=== PATIENT | female | born 1940 ===

== ENCOUNTER 2018-12-12 11:19 | Inpatient (IN) | payer MEDICARE, MEDICAID ==
[2018-12-12 11:19] VITALS: BMI 22.8
[2018-12-12] MEDS ORDERED: Piperacillin/Tazobact 3.375 gm 100 ML IVPB STA (11:41)
--- NOTE | 2018-12-12 11:45 | C.PDOC ---
History Of Present Illness 78 y/o male with a PMHx of HTN, DM, and heart surgery, comes in for evaluation of right 3rd toe swelling and redness. Patient was seen by Dr. Bay and sent to the ED to rule out osteo. Otherwise patient denies any numbness, tingling, fevers, or chills. Time Seen by Provider: 12/12/18 11:33 Chief Complaint (Nursing): Lower Extremity Problem/Injury History Per: Patient History/Exam Limitations: no limitations Onset/Duration Of Symptoms: Days Current Symptoms Are (Timing): Still Present Past Medical History Reviewed: Historical Data, Nursing Documentation, Vital Signs Vital Signs: Last Vital Signs Temp 98 F 12/12/18 11:23 Pulse 101 H 12/12/18 11:23 Resp 18 12/12/18 11:23 BP 120/71 12/12/18 11:23 Pulse Ox 100 12/12/18 11:23 - Medical History PMH: Diabetes, Gastritis, HTN, Hypothyroidism Denies: Chronic Kidney Disease Surgical History: Coronary Stent - [facility] Procedures FLUOROSCOPY OF LEFT HEART USING LOW OSMOLAR CONTRAST (02/06/16) FLUOROSCOPY OF MULT COR ART USING L OSM CONTRAST (02/06/16) MEASURE OF CARDIAC SAMPL & PRESSURE, L HEART, PERC APPROACH (02/06/16) Family History: States: Unknown Family Hx - Social History Hx Tobacco Use: No Hx Alcohol Use: No Hx Substance Use: No - Immunization History Hx Tetanus Toxoid Vaccination: No Hx Influenza Vaccination: Yes Hx Pneumococcal Vaccination: No Review Of Systems Except As Marked, All Systems Reviewed And Found Negative. Constitutional: Negative for: Fever, Chills Musculoskeletal: Positive for: Foot Pain (Right 3rd toe pain and redness) Neurological: Negative for: Weakness, Numbness Physical Exam - Physical Exam Appears: Non-toxic, No Acute Distress Skin: Warm, Dry Head: Atraumatic, Normacephalic Eye(s): bilateral: Normal Inspection, PERRL, EOMI Oral Mucosa: Moist Neck: Normal ROM Chest: Symmetrical Cardiovascular: Rhythm Regular, No Murmur Respiratory: Normal Breath Sounds, No Accessory Muscle Use Gastrointestinal/Abdominal: Soft, No Tenderness, No Distention Extremity: Tenderness (to right 3rd digit), Capillary Refill (< 2 sec), Swelling (and erythema to the 3rd digit, right foot) Pulses: Left Dorsalis Pedis: Normal, Right Dorsalis Pedis: Normal Neurological/Psych: Oriented x3, Normal Motor, Normal Sensation ED Course And Treatment - Laboratory Results Result Diagrams: 12/12/18 12:01 12/12/18 12:01 O2 Sat by Pulse Oximetry: 100 (RA) Pulse Ox Interpretation: Normal Medical Decision Making Medical Decision Making: Impression: Right 3rd digit swelling and erythema, cellulitis vs abscess vs osteo Initial Plan: --CMP, CBC, coags, ESR --Blood culture --Right foot x-ray --Patient started on IV vanco and zosyn 11:45 Paged podiatry for consult. 11:47 Case discussed with PMD Dr. Samuel Marvin, notified that patient is here. accpets case. see by podiatry. Disposition - Disposition Disposition: HOSPITALIZED Disposition Time: 15:00 Condition: GOOD - Clinical Impression Clinical Impression: Cellulitis - Scribe Statement The provider has reviewed the documentation as recorded by the Maryjo Dawkins Provider Attestation: All medical record entries made by the Michelleibjewels were at my direction and personally dictated by me. I have reviewed the chart and agree that the record accurately reflects my personal performance of the history, physical exam, medical decision making, and the department course for this patient. I have also personally directed, reviewed, and agree with the discharge instructions and disposition. Decision To Admit - Pt Status Changed To: Hospital Disposition Of: Inpatient - Admit Certification Admit to Inpatient:: After my assessment, the patient will require hospitalization for at least two midnights. This is because of the severity of symptoms shown, intensity of services needed, and/or the medical risk in this patient being treated as an outpatient. - InPatient: Physician Admission Certification: I certify that this patient requires 2 or more midnights of care for the following reason:: ro osteo - . Bed Request Type: Regular Admitting Physician: Felicia Marvin Patient Diagnosis: Cellulitis
[2018-12-12 12:10] LABS: BASO % 0.3 % (0.0-2.0); EOS # 0.1 K/uL (0.0-0.7); EOS % 0.8 % (0.0-4.0); HEMOGLOBIN 9.5 g/dL (11.0-16.0); LYMPH # 1.9 K/uL (1.0-4.3); MEAN CORPUSCULAR HEMOGLOBIN 25.9 pg (27.0-31.0); MEAN CORPUSCULAR HGB CONC 32.3 g/dL (33.0-37.0); MONO # 0.5 K/uL (0.0-0.8); MONO % 5.6 % (0.0-10.0); NEUT % 73.3 % (50.0-75.0); RBC 3.66 Mil/uL (3.80-5.20); RED CELL DISTRIBUTION WIDTH 16.2 % (11.5-14.5); WHITE BLOOD COUNT 9.5 K/uL (4.8-10.8)
[2018-12-12 12:11] LABS: MEAN CELL VOLUME 80.3 fL (81.0-99.0)
--- NOTE | 2018-12-12 12:11 | CP.PCM.CON ---
History of Present Illness - History of Present Illness History of Present Illness: Podiatry Consult Note - Dr. Fady Bay 78 y/o female with PMHx of DM, HTN and history of cardiac bypass x 3 seen in emergency room for right foot abscess of 3rd digit. Patient was seen in the office earlier today by Dr. Bay, who sent her to the [facility] [place] ER for further workup of right foot cellulitis with 3rd toe fluctuance. Patient says her toe has been like this a few days since she went to an adult care clinic and they shaved down her toe callus. Admits to pain in the right 3rd toe. Denies tingling, numbness or burning. Denies F/C/N/V/CP/SOB PSHx: cardiac bypass All: NKDA SocHx: denies EtOH, cigarette or drug use Review of Systems - Review of Systems All systems: reviewed and no additional remarkable complaints except (per HPI) Past Patient History - Past Medical History & Family History Past Medical History?: Yes - Past Social History Smoking Status: Never Smoked - CARDIAC Hx Hypertension: Yes - PULMONARY Hx Respiratory Disorders: No - NEUROLOGICAL Hx Neurological Disorder: No - HEENT Hx HEENT Problems: Yes Hx Cataracts: Yes - RENAL Hx Chronic Kidney Disease: No - ENDOCRINE/METABOLIC Hx Hypothyroidism: Yes - HEMATOLOGICAL/ONCOLOGICAL Hx Blood Disorders: No - INTEGUMENTARY Hx Dermatological Problems: No - MUSCULOSKELETAL/RHEUMATOLOGICAL Hx Musculoskeletal Disorders: No - GASTROINTESTINAL Hx Gastritis: Yes - GENITOURINARY/GYNECOLOGICAL Hx Genitourinary Disorders: No - PSYCHIATRIC Hx Substance Use: No - SURGICAL HISTORY Hx Coronary Stent: Yes - ANESTHESIA Hx Anesthesia: Yes Hx Anesthesia Reactions: No Hx Malignant Hyperthermia: No Meds Allergies/Adverse Reactions: Allergies Allergy/AdvReac Type Severity Reaction Status Date / Time No Known Allergies Allergy Verified 12/12/18 11:27 - Medications Medications: Current Medications Vancomycin HCl 1 gm/ Sodium (Chloride) 250 mls @ 166.7 mls/hr IVPB STAT STA; Protocol Stop: 12/12/18 13:10 Physical Exam - Constitutional Appears: Well, Non-toxic, No Acute Distress - Extremities Exam Additional comments: Lower extremity focused exam: Vasc: DP/PT pulses palpable 2/4 B/L. Temperature gradient warm to warm on right foot, warm to cool on LLE. CFT < 3 sec to all digits with exception of right 3rd toe (unable to assess secondary to cellulitis and edema). Pedal edema noted to dorsum of right foot and entirety of 3rd toe Derm: Cellulitis noted to dorsum of right foot and entirety of 3rd toe. Hyperkeratotic tissue noted to distal tip of 3rd toe. Fluctuance noted to entirety of 3rd digit distal to MPJ. Post bedside incision and drainage, underlying ulceration present approx 0.5cm x 0.5cm x 0.2cm with fibrotic wound base. 10-12cc of purulent drainage expressed from toe s/p incision and drainage. Heather wound exhibits mild erythema. Minimal malodor noted Neuro: protective and gross sensation intact Ortho: mild-moderate tenderness with pressure applied to 3rd digit. Decreased tenderness noted s/p incision and drainage of right 3rd toe. Hammertoe contracture is noted to right 3rd digit resulting in plantarflexed PIPJ - Neurological Exam Neurological exam: Alert, Oriented x3 - Psychiatric Exam Psychiatric exam: Normal Affect, Normal Mood Results - Vital Signs Recent Vital Signs: Last Vital Signs Temp 98 F 12/12/18 11:23 Pulse 101 H 12/12/18 11:23 Resp 18 12/12/18 11:23 BP 120/71 12/12/18 11:23 Pulse Ox 100 12/12/18 11:48 - Labs Result Diagrams: 12/12/18 12:01 12/12/18 12:01 Assessment & Plan - Assessment and Plan (Free Text) Assessment: 78 y/o diabetic female with right foot 3rd digit abscess likely secondary to DM and pressure Plan Pt seen and evaluated in ED with Dr. Bay present X-rays ordered of R foot reviewed- no distinct acute osseous erosive changes noted to right 3rd toe; await final read Incision and drainage performed to right foot 3rd toe with sterile 15 blade 10-12 cc of purulent drainage expressed at bedside Wound culture taken of purulent drainage, await results Saline wet to dry dressing applied to R foot; Dakins solution ordered for dressing changes Recommend hospital admission for IV abx and medical management ID consult placed for Dr. Joiner - recommendations appreciated Will continue to follow patient while in house
[2018-12-12 12:18] LABS: INR 1.1; PROTHROMBIN TIME 11.5 SECONDS (9.7-12.2)
[2018-12-12] MEDS ORDERED: Vancomycin 1 GM 1 GM/250 ML BAG IVPB ONE (12:20)
[2018-12-12] MEDS ORDERED: Piperacillin/Tazobact 3.375 gm 100 ML IVPB ONE (12:20)
[2018-12-12 12:29] LABS: ALB/GLOB RATIO 1.2 (1.0-2.1); ALBUMIN 4.3 g/dL (3.5-5.0); ALT/SGPT 12 U/L (9-52); AST/SGOT 15 U/L (14-36); BLOOD UREA NITROGEN 15 mg/dL (7-17); GFR NON-AFRICAN AMERICAN 54
--- NOTE | 2018-12-12 14:56 | RAD ---
Date of service: 12/12/2018 PROCEDURE: Right Foot Radiographs. HISTORY: swelling COMPARISON: None. FINDINGS: BONES: Distal 3rd digit is difficult to evaluate due to contracted nature. JOINTS: Normal. SOFT TISSUES: Extensive distal 3rd digit swelling OTHER FINDINGS: None. IMPRESSION: Limited evaluation of the distal 3rd digit due to contracted nature. Extensive distal 3rd digit soft tissue swelling.
[2018-12-12] MEDS: Levothyroxine 50 MCG TAB PO SCH (14:58)
[2018-12-12] MEDS: Multivitamin With Minerals Tab PO SCH (14:59)
[2018-12-12] MEDS ORDERED: Glucagon Recombinant 1 mg Inj IM PRN (16:38)
[2018-12-12] MEDS ORDERED: Dextrose 50% SYRINGE Inj (50 ml) IV PRN (16:38)
[2018-12-12] MEDS: (Novolin R) Insulin Human Regular 100 units/ml vial SC SCH ×2 (17:24→21:05)
--- NOTE | 2018-12-12 21:32 | HP ---
HISTORY OF PRESENT ILLNESS: This is a 78-year-old [place] female who was sent to the emergency room. The patient was having right middle toe swelling and redness. The patient complained of throbbing inside. The patient was seen in Dr. Fady Bay's office and decided to admit. The patient complained of low-grade fever. No history of chest pain. REVIEW OF SYSTEMS: CARDIOVASCULAR SYSTEM: Negative for chest pain. RESPIRATORY SYSTEM: Negative for shortness of breath. GASTROINTESTINAL SYSTEM: Negative for nausea, vomiting, or abdominal pain. CENTRAL NERVOUS SYSTEM: No focal neurological complaints offered. Right foot third toe is swollen, tender, and possible with abscess. The patient also has cellulitis up to the ankle. PAST HISTORY: History of diabetes, gastritis, hypertension, hypothyroidism, coronary artery disease. PAST SURGICAL HISTORY: Bypass surgery in the past. ALLERGIES: NO KNOWN ALLERGY. FAMILY HISTORY: No known inherited disease. SOCIAL HISTORY: Nonsmoker, nonalcoholic, no IVDA. MEDICATIONS: The patient's medications were reviewed by me on admission. PHYSICAL EXAMINATION: GENERAL: The patient is alert, oriented, comfortable.. VITAL SIGNS: Temperature 98, pulse 101, respirations 18, blood pressure 120/71 mmHg, pulse ox is 100% on room air. HEENT: Normal. NECK: JVP flat. Carotid, no bruits. LUNGS: No rales. No wheezing. HEART: S1 and S2 are normal. No gallop. No murmur. ABDOMEN: Soft, nontender. No organomegaly. CENTRAL NERVOUS SYSTEM: No focal neurological deficits. Right foot has third toe swollen, tender with abscess and redness. Also cellulitis noted up to the ankle. Tenderness present. Redness present. Warmth present. LABORATORY DATA: On admission, white cell count is normal. IMPRESSION: Right foot cellulitis with right third toe abscess. Rule out osteomyelitis. Coronary artery disease, status post bypass surgery, diabetes, and hypertension. PLAN: The patient will be admitted to the floor. We will get podiatry consult and also infectious disease consult. Continue all the medications. Other workup as needed. Felicia Marvin MD
[2018-12-13] MEDS: Levothyroxine 50 MCG TAB PO SCH (05:40)
[2018-12-13] MEDS: (Novolin R) Insulin Human Regular 100 units/ml vial SC SCH ×4 (08:37→22:08)
[2018-12-13] MEDS: Multivitamin With Minerals Tab PO SCH (10:39)
[2018-12-13] MEDS: Dakin's Topical 0.5%-Full Strength (480 ml) TOP SCH (10:42)
--- NOTE | 2018-12-13 12:12 | CP.PCM.PN ---
Subjective - Date & Time of Evaluation Date of Evaluation: 12/13/18 Time of Evaluation: 12:12 - Subjective Subjective: Podiatry Progress Note - Dr. Bay 78 y/o female seen at bedside this afternoon with Dr. Bay regarding right 3rd toe abscess. Patient says pain has gone down significantly to right foot 3rd toe. Says she has been walking with physical therapy but only putting weight on the heel because it hurts if the toe hits the ground or there is pressure on it. Denies any new pedal complaints. Denies F/C/N/V/CP/SOB Objective - Vital Signs/Intake and Output Vital Signs (last 24 hours): Temp Pulse Resp BP Pulse Ox 98.2 F 88 20 118/74 98 12/13/18 07:37 12/13/18 07:37 12/13/18 07:37 12/13/18 10:40 12/13/18 07:37 Intake and Output: 12/13/18 12/13/18 06:59 18:59 Intake Total 360 Balance 360 - Medications Medications: Current Medications Dextrose (Dextrose 50% Inj) 0 ml IV STAT PRN; Protocol PRN Reason: Hypoglycemia Protocol Dextrose (Glutose 15) 0 gm PO ONCE PRN; Protocol PRN Reason: Hypoglycemia Protocol Enalapril Maleate (Vasotec) 2.5 mg PO DAILY [facility] Last Admin: 12/13/18 10:40 Dose: 2.5 mg Fenofibrate (Tricor) 48 mg PO HS [facility] Last Admin: 12/12/18 21:40 Dose: 48 mg Gabapentin (Neurontin) 300 mg PO TID [facility] Last Admin: 12/13/18 10:39 Dose: 300 mg Glimepiride (Amaryl) 2 mg PO ACB [facility] Last Admin: 12/13/18 08:37 Dose: 2 mg Glucagon (Glucagen Diagnostic Kit) 0 mg IM STAT PRN; Protocol PRN Reason: Hypoglycemia Protocol Heparin Sodium (Porcine) (Heparin) 5,000 units SC Q12 [facility] Last Admin: 12/13/18 10:39 Dose: 5,000 units Dextrose (Dextrose 5% In Water 1000 Ml) 1,000 mls @ 0 mls/hr IV .Q0M PRN; Protocol PRN Reason: Hypoglycemia Protocol Insulin Human Regular (Novolin R) 0 unit SC ACHS [facility]; Protocol Last Admin: 01/23/19 08:37 Dose: 3 units Levothyroxine Sodium (Synthroid) 50 mcg PO DAILY@0630 [facility] Last Admin: 12/13/18 05:40 Dose: 50 mcg Metformin HCl (Glucophage) 1,000 mg PO BIDCC [facility] Last Admin: 12/13/18 08:37 Dose: 1,000 mg Multivitamins/Minerals (Therapeutic-M Tab) 1 tab PO DAILY [facility] Last Admin: 12/13/18 10:39 Dose: 1 tab Pioglitazone HCl (Actos) 15 mg PO DAILY [facility] Last Admin: 12/13/18 10:39 Dose: 15 mg Sitagliptin Phosphate (Januvia) 100 mg PO DAILY [facility] Last Admin: 12/13/18 10:39 Dose: 100 mg Sodium Hypochlorite (Dakins Solution 0.5%) 0 ml TOP DAILY [facility] Last Admin: 12/13/18 10:42 Dose: Not Given - Labs Labs: 12/12/18 12:01 12/12/18 12:01 PT 11.5 SECONDS (9.7-12.2) 12/12/18 12:01 INR 1.1 12/12/18 12:01 APTT 30 SECONDS (21-34) 12/12/18 12:01 - Constitutional Appears: Well, Non-toxic, No Acute Distress - Extremities Exam Additional comments: Lower extremity focused exam: Vasc: DP/PT pulses palpable 2/4 B/L. Temperature gradient warm to warm on right foot, warm to cool on LLE. CFT < 3 sec to all digits with exception of right 3rd toe (unable to assess secondary to bogginess and edema). Pedal edema noted to dorsum of right foot and entirety of 3rd toe, less since admission Derm: Mild cellulitis noted to dorsum of right foot and entirety of 3rd toe, significantly decreased since hospital admission. Minimal hyperkeratotic tissue noted to distal tip of 3rd toe. Mild fluctuance and bogginess noted to entirety of 3rd digit distal to MPJ, significantly less since admission. Heather wound exhibits mild erythema. Additional 2-3cc of purulent drainage expressed with pressure. Neuro: protective and gross sensation intact Ortho: mild tenderness with pressure applied to 3rd digit. Decreased tenderness noted s/p incision and drainage yesterday of right 3rd toe. Hammertoe cont racture is noted to right 3rd digit resulting in plantarflexed PIPJ - Neurological Exam Neurological Exam: Alert, Awake, Oriented x3 - Psychiatric Exam Psychiatric exam: Normal Affect, Normal Mood Assessment and Plan - Assessment and Plan (Free Text) Assessment: 78 y/o diabetic female with right foot 3rd digit abscess likely secondary to DM and pressure Plan Pt seen and evaluated in ED with Dr. Bay present X-rays ordered of R foot reviewed- no distinct acute osseous erosive changes noted to right 3rd toe; await final read Wound culture prelim shows gram pos cocci, await final results RLE MRI taken today reveals cortical destruction and erosion at distal phalanx of 3rd digit, suggestive of acute osteomyelitis Dakins and DSD applied to right foot ID on board Dr. Joiner - recommendations appreciated Will continue to follow patient while in house
--- NOTE | 2018-12-13 12:41 | CP.PCM.PN ---
Subjective - Date & Time of Evaluation Date of Evaluation: 12/13/18 Time of Evaluation: 12:38 - Subjective Subjective: rt foot inf present. afebrile. wound c/s gm pos cocci. vs stable. Objective - Vital Signs/Intake and Output Vital Signs (last 24 hours): Temp Pulse Resp BP Pulse Ox 98.2 F 88 20 118/74 98 12/13/18 07:37 12/13/18 07:37 12/13/18 07:37 12/13/18 10:40 12/13/18 07:37 Intake and Output: 12/13/18 12/13/18 06:59 18:59 Intake Total 360 Balance 360 - Medications Medications: Current Medications Dextrose (Dextrose 50% Inj) 0 ml IV STAT PRN; Protocol PRN Reason: Hypoglycemia Protocol Dextrose (Glutose 15) 0 gm PO ONCE PRN; Protocol PRN Reason: Hypoglycemia Protocol Enalapril Maleate (Vasotec) 2.5 mg PO DAILY [facility] Last Admin: 12/13/18 10:40 Dose: 2.5 mg Fenofibrate (Tricor) 48 mg PO HS [facility] Last Admin: 12/12/18 21:40 Dose: 48 mg Gabapentin (Neurontin) 300 mg PO TID [facility] Last Admin: 12/13/18 10:39 Dose: 300 mg Glimepiride (Amaryl) 2 mg PO ACB [facility] Last Admin: 12/13/18 08:37 Dose: 2 mg Glucagon (Glucagen Diagnostic Kit) 0 mg IM STAT PRN; Protocol PRN Reason: Hypoglycemia Protocol Heparin Sodium (Porcine) (Heparin) 5,000 units SC Q12 [facility] Last Admin: 12/13/18 10:39 Dose: 5,000 units Dextrose (Dextrose 5% In Water 1000 Ml) 1,000 mls @ 0 mls/hr IV .Q0M PRN; Protocol PRN Reason: Hypoglycemia Protocol Insulin Human Regular (Novolin R) 0 unit SC ACHS [facility]; Protocol Last Admin: 12/13/18 08:37 Dose: 3 units Levothyroxine Sodium (Synthroid) 50 mcg PO DAILY@0630 [facility] Last Admin: 12/13/18 05:40 Dose: 50 mcg Metformin HCl (Glucophage) 1,000 mg PO BIDCC [facility] Last Admin: 12/13/18 08:37 Dose: 1,000 mg Multivitamins/Minerals (Therapeutic-M Tab) 1 tab PO DAILY [facility] Last Admin: 12/13/18 10:39 Dose: 1 tab Pioglitazone HCl (Actos) 15 mg PO DAILY [facility] Last Admin: 12/13/18 10:39 Dose: 15 mg Sitagliptin Phosphate (Januvia) 100 mg PO DAILY [facility] Last Admin: 12/13/18 10:39 Dose: 100 mg Sodium Hypochlorite (Dakins Solution 0.5%) 0 ml TOP DAILY [facility] Last Admin: 12/13/18 10:42 Dose: Not Given - Labs Labs: 12/12/18 12:01 12/12/18 12:01 PT 11.5 SECONDS (9.7-12.2) 12/12/18 12:01 INR 1.1 12/12/18 12:01 APTT 30 SECONDS (21-34) 12/12/18 12:01 - Constitutional Appears: No Acute Distress - Eye Exam Eye Exam: Normal appearance, PERRL - ENT Exam ENT Exam: Normal Exam - Respiratory Exam Respiratory Exam: Clear to Ausculation Bilateral, NORMAL BREATHING PATTERN - Cardiovascular Exam Cardiovascular Exam: REGULAR RHYTHM, +S1, +S2 - GI/Abdominal Exam GI & Abdominal Exam: Soft, Normal Bowel Sounds - Extremities Exam Extremities Exam: Full ROM, Normal Capillary Refill, Normal Inspection. absent: Joint Swelling, Pedal Edema - Back Exam Back Exam: NORMAL INSPECTION - Neurological Exam Neurological Exam: Alert, Awake, CN II-XII Intact, Normal Gait, Oriented x3 - Psychiatric Exam Psychiatric exam: Normal Affect, Normal Mood Assessment and Plan - Assessment and Plan (Free Text) Assessment: wound inf rt foot. cad. Plan: as per podietry and id.
[2018-12-13] MEDS: Piperacill/Tazo 3.375gm in Dex 3.375 GM/50 ML BAG IVPB SCH ×2 (14:44→22:07)
--- NOTE | 2018-12-13 18:14 | CP.PCM.CON ---
History of Present Illness - History of Present Illness History of Present Illness: 78 y/o female with PMHx of DM, HTN and history of cardiac bypass x 3 Admitted for right foot cellulitis with 3rd toe fluctuance. Patient says her toe has been like this a few days since she went to an adult care clinic and they shaved down her toe callus. Plain X ray neg MRI pending PSHx: cardiac bypass All: NKDA SocHx: denies EtOH, cigarette or drug use Review of Systems - Review of Systems All systems: reviewed and no additional remarkable complaints except - Constitutional Constitutional: As Per HPI. absent: Chills, Fever - EENT Eyes: absent: As Per HPI, Blind Spots, Blurred Vision, Change in Vision, Decreased Night Vision, Diplopia, Discharge, Dry Eye, Exophthalmos, Floaters, Irritation, Itchy Eyes, Loss of Peripheral Vision, Pain, Photophobia, Requires Corrective Lenses, Sees Flashes, Spots in Vision, Tunnel Vision, Other Visual Disturbances, Loss of Vision, Other Ears: absent: As Per HPI, Decreased Hearing, Ear Discharge, Ear Pain, Tinnitus, Abnormal Hearing, Disequilibrium, Dizziness, Other Nose/Mouth/Throat: absent: As Per HPI, Epistaxis, Nasal Congestion, Nasal Discharge, Nasal Obstruction, Nasal Trauma, Nose Pain, Post Nasal Drip, Sinus Pain, Sinus Pressure, Bleeding Gums, Change in Voice, Dental Pain, Dry Mouth, Dysphagia, Halitosis, Hoarsness, Lip Swelling, Mouth Lesions, Mouth Pain, Odynophagia, Sore Throat, Throat Swelling, Tongue Swelling, Facial Pain, Neck Pain, Neck Mass, Other - Breasts Breasts: absent: As Per HPI, Change in Shape, Mass, Pain, Nipple Discharge, Nipple Inversion, Skin Changes, Swelling, Other - Cardiovascular Cardiovascular: absent: As Per HPI, Acrocyanosis, Chest Pain, Chest Pain at Rest, Chest Pain with Activity, Claudication, Diaphoresis, Dyspnea, Dyspnea on E xertion, Edema, Irregular Heart Rhythm, Pain Radiating to Arm/Neck/Jaw, Leg Edema, Leg Ulcers, Lightheadedness, Orthopnea, Palpitations, Paroxysmal Nocturnal Dyspnea, Pedal Edema, Radiating Pain, Rapid Heart Rate, Slow Heart Rate, Syncope, Other - Respiratory Respiratory: absent: As Per HPI, Cough, Dyspnea, Hemoptysis, Dyspnea on Exertion, Wheezing, Snoring, Stridor, Pain on Inspiration, Chest Congestion, Excessive Mucous Production, Change in Mucous Color, Pain with Coughing, Other - Gastrointestinal Gastrointestinal: absent: As Per HPI, Abdominal Pain, Belching, Bloating, Change in Bowel Habits, Change in Stool Character, Coffee Ground Emesis, Constipation, Cramping, Diarrhea, Dyspepsia, Dysphagia, Early Satiety, Excessive Flatus, Fecal Incontinence, Heartburn, Hematemesis, Hematochezia, Loose Stools, Melena, Nausea, Odynophagia, Temesmus, Vomiting, Other - Genitourinary Genitourinary: absent: As Per HPI, Change in Urinary Stream, Difficulty Urinating, Dysuria, Flank Pain, Hematuria, Pyuria, Nocturia, Urinary Incontinence, Urinary Frequency, Urinary Hesitance, Urinary Urgency, Voiding Freq/Small Amts, Freq UTI, Hx Renal/Bladder Calculi, Hx /Renal Surgery, Bladd er Distension, Other - Reproductive: Female Reproductive:Female: absent: As Per HPI, Amenorrhea, Amenorrhea/ Control, Currently Menstual, Cycle <21 Days, Cycle >35 Days, Cycle Variable, Menses 1-7 Days, Menses >/= 8 Days, Menses Variable, Cycle > 4 Weeks Between, No Menses for 6 Months, Heavy Menses, Light Menses, Normal Menses, Spotting Between Cycles, S/P Hysterectomy, Menopausal, Post Menopausal, Premenarche, Abnormal Vaginal Bleeding, Dysmenorrhea, Dyspareunia, Genital Lesions, Genital Pruritis, Pelvic Pain, Prolapse Symptoms, Sexual Dysfunction, Vaginal Discharge, Vaginal Dryness, Vaginal Odor, Vaginal Pruritis, Other - Menstruation Menstruation: absent: As Per HPI, Amenorrhea, Amenorrhea/ Control, Currently Menstual, Cycle <21 Days, Cycle >35 Days, Cycle Variable, Menses 1-7 Days, Menses >/= 8 Days, Menses Variable, Cycle > 4 Weeks Between, No Menses for 6 Months, Heavy Menses, Light Menses, Normal Menses, Spotting Between Cycles, S/P Hysterectomy, Menopausal, Post Menopausal, Premenarche, Abnormal Vaginal Bleeding, Dysmenorrhea, Other - Musculoskeletal Musculoskeletal: As Per HPI - Integumentary Integumentary: As Per HPI, Skin Pain, Wounds - Neurological Neurological: As Per HPI - Psychiatric Psychiatric: absent: As Per HPI, Abnormal Sleep Pattern, Anhedonia, Anxiety, Auditory Hallucinations, Behavioral Changes, Change in Appetite, Change in Libido, Confusion, Depression, Difficulty Concentrating, Hallucinations, Homicidal Ideation, Hopelessness, Irritability, Memory Loss, Mood Swings, Panic Attacks, Paranoia, Suicidal Ideation, Visual Hallucinations, Tactile Hallucinations, Other - Endocrine Endocrine: absent: As Per HPI, Change in Body Appearance, Change in Libido, Cold Intolorance, Deepening of Voice, Excessive Sweating, Fatigue, Flushing, Heat Intolorance, Increase in Ring/Shoe/Hat Size, Palpitations, Polydipsia, Polyphagia, Polyuria, Other - Hematologic/Lymphatic Hematologic: absent: As Per HPI, Easy Bleeding, Easy Bruising, Lymphadenopathy, Other Past Patient History - Past Medical History & Family History Past Medical History?: Yes - Past Social History Smoking Status: Never Smoked - CARDIAC Hx Hypertension: Yes - PULMONARY Hx Respiratory Disorders: No - NEUROLOGICAL Hx Neurological Disorder: No - HEENT Hx HEENT Problems: Yes Hx Cataracts: Yes - RENAL Hx Chronic Kidney Disease: No - ENDOCRINE/METABOLIC Hx Hypothyroidism: Yes - HEMATOLOGICAL/ONCOLOGICAL Hx Blood Disorders: No - INTEGUMENTARY Hx Dermatological Problems: No - MUSCULOSKELETAL/RHEUMATOLOGICAL Hx Musculoskeletal Disorders: No Hx Falls: No - GASTROINTESTINAL Hx Gastritis: Yes - GENITOURINARY/GYNECOLOGICAL Hx Genitourinary Disorders: No - PSYCHIATRIC Hx Substance Use: No - SURGICAL HISTORY Hx Coronary Stent: Yes - ANESTHESIA Hx Anesthesia: Yes Hx Anesthesia Reactions: No Hx Malignant Hyperthermia: No Meds Allergies/Adverse Reactions: Allergies Allergy/AdvReac Type Severity Reaction Status Date / Time No Known Allergies Allergy Verified 12/12/18 11:27 - Medications Medications: Current Medications Betamethasone/Clotrimazole (Lotrisone) 0 gm TOP BID [facility] Dextrose (Dextrose 50% Inj) 0 ml IV STAT PRN; Protocol PRN Reason: Hypoglycemia Protocol Dextrose (Glutose 15) 0 gm PO ONCE PRN; Protocol PRN Reason: Hypoglycemia Protocol Enalapril Maleate (Vasotec) 2.5 mg PO DAILY [facility] Last Admin: 12/13/18 10:40 Dose: 2.5 mg Fenofibrate (Tricor) 48 mg PO HS [facility] Last Admin: 12/12/18 21:40 Dose: 48 mg Gabapentin (Neurontin) 300 mg PO TID [facility] Last Admin: 12/13/18 14:45 Dose: 300 mg Glimepiride (Amaryl) 2 mg PO ACB [facility] Last Admin: 12/13/18 08:37 Dose: 2 mg Glucagon (Glucagen Diagnostic Kit) 0 mg IM STAT PRN; Protocol PRN Reason: Hypoglycemia Protocol Heparin Sodium (Porcine) (Heparin) 5,000 units SC Q12 [facility] Last Admin: 12/13/18 10:39 Dose: 5,000 units Dextrose (Dextrose 5% In Water 1000 Ml) 1,000 mls @ 0 mls/hr IV .Q0M PRN; Protocol PRN Reason: Hypoglycemia Protocol Piperacillin Sod/Tazobactam Sod (Zosyn 3.375 Gm Iv Premix) 3.375 gm in 50 mls @ 100 mls/hr IVPB Q8H [facility]; Protocol Last Admin: 12/13/18 14:44 Dose: 100 mls/hr Insulin Human Regular (Novolin R) 0 unit SC ACHS [facility]; Protocol Last Admin: 12/13/18 17:08 Dose: Not Given Levothyroxine Sodium (Synthroid) 50 mcg PO DAILY@0630 [facility] Last Admin: 12/13/18 05:40 Dose: 50 mcg Metformin HCl (Glucophage) 1,000 mg PO BIDCC [facility] Last Admin: 12/13/18 08:37 Dose: 1,000 mg Multivitamins/Minerals (Therapeutic-M Tab) 1 tab PO DAILY [facility] Last Admin: 12/13/18 10:39 Dose: 1 tab Pioglitazone HCl (Actos) 15 mg PO DAILY [facility] Last Admin: 12/13/18 10:39 Dose: 15 mg Sitagliptin Phosphate (Januvia) 100 mg PO DAILY [facility] Last Admin: 12/13/18 10:39 Dose: 100 mg Sodium Hypochlorite (Dakins Solution 0.5%) 0 ml TOP DAILY [facility] Last Admin: 12/13/18 10:42 Dose: Not Given Physical Exam - Constitutional Appears: Non-toxic, Chronically Ill - Head Exam Head Exam: NORMOCEPHALIC - Eye Exam Eye Exam: absent: Scleral icterus - ENT Exam ENT Exam: Mucous Membranes Dry - Neck Exam Neck exam: Negative for: Lymphadenopathy - Respiratory Exam Respiratory Exam: Decreased Breath Sounds - Cardiovascular Exam Cardiovascular Exam: REGULAR RHYTHM - GI/Abdominal Exam GI & Abdominal Exam: Diminished Bowel Sounds, Soft. absent: Tenderness - Rectal Exam Rectal Exam: Deferred - Extremities Exam Extremities exam: Positive for: pedal edema, tenderness, pedal pulses present. Negative for: calf tenderness Additional comments: Lower extremity focused exam: Vasc: DP/PT pulses palpable 2/4 B/L. Temperature gradient warm to warm on right foot, warm to cool on LLE. CFT < 3 sec to all digits with exception of right 3rd toe (unable to assess secondary to cellulitis and edema). Pedal edema noted to dorsum of right foot and entirety of 3rd toe Derm: Cellulitis noted to dorsum of right foot and entirety of 3rd toe. Hyperkeratotic tissue noted to distal tip of 3rd toe. Fluctuance noted to entirety of 3rd digit distal to MPJ. Post bedside incision and drainage, underlying ulceration present approx 0.5cm x 0.5cm x 0.2cm with fibrotic wound base. 10-12cc of purulent drainage expressed from toe s/p incision and drainage. Heather wound exhibits mild erythema. Minimal malodor noted Neuro: protective and gross sensation intact Ortho: mild-moderate tenderness with pressure applied to 3rd digit. Decreased te nderness noted s/p incision and drainage of right 3rd toe. Hammertoe contracture is noted to right 3rd digit resulting in plantarflexed PIPJ - Back Exam Back exam: absent: CVA tenderness (L), CVA tenderness (R) - Neurological Exam Neurological exam: Alert, CN II-XII Intact, Oriented x3, Reflexes Normal - Psychiatric Exam Psychiatric exam: Depressed - Skin Skin Exam: Dry Results - Vital Signs Recent Vital Signs: Last Vital Signs Temp 97.3 F L 12/13/18 16:29 Pulse 97 H 12/13/18 16:29 Resp 20 12/13/18 16:29 BP 118/76 12/13/18 16:29 Pulse Ox 100 12/13/18 16:29 - Labs Result Diagrams: 12/12/18 12:01 12/12/18 12:01 Labs: Laboratory Results - last 24 hr 12/12/18 12/13/18 12/13/18 20:57 07:14 11:22 POC Glucose (mg/dL) 212 H 247 H 188 H 12/13/18 16:13 POC Glucose (mg/dL) 97 Assessment & Plan (1) Cellulitis Status: Acute (2) Non-STEMI (non-ST elevated myocardial infarction) Status: Acute - Assessment and Plan (Free Text) Assessment: cellulitis right 3rd toe- s/p I and D by podiatry r/o OM acute hx CAD await cultures cont IV antibiotics Discussed with Dr Felicia Marvin
--- NOTE | 2018-12-13 18:32 | MRI ---
Date of service: 12/13/2018 PROCEDURE: MRI of the right foot without contrast HISTORY: r/o osteomyelitis right 3rd digit COMPARISON: Comparison is made to the previous x-ray of the right foot dated 12/12/2018 TECHNIQUE: Axial coronal and sagittal MRI images of right foot were obtained without IV contrast administration. FINDINGS: This study demonstrates cortical erosion/destruction at the distal phalanx of right 3rd digit associated with bone marrow edema and adjacent soft tissue swelling. Findings suggestive of acute osteomyelitis. No evidence of other cortical erosion or bone marrow edema. Hallux valgus deformity and degenerative changes are noted at the tarsal metatarsal and metatarsophalangeal joints. IMPRESSION: Findings suggestive of acute osteomyelitis involving the distal phalanx of the 3rd digit. Adjacent soft tissue swelling without definite evidence of drainable fluid collection. Preliminary report was submitted by [facility] Rad[facility].
[2018-12-13] MEDS: Clotrimazole/Betamethasone Cream(15 gm) TOP SCH (18:53)
[2018-12-13] MEDS: Vancomycin 1 gm/NS 200 ml 1 GM/200 ML BAG IVPB SCH (19:11)
[2018-12-13 20:46] LABS: SQUAMOUS EPITHIAL < 1 /hpf (0-5); URINE BACTERIA RARE (<OCC); URINE BILIRUBIN NEGATIVE (NEGATIVE); URINE BLOOD NEGATIVE (NEGATIVE); URINE CLARITY Clear (Clear); URINE COLOR Yellow (YELLOW); URINE GLUCOSE (UA) NORMAL (Normal); URINE LEUKOCYTE ESTERASE TRACE Leu/uL (Negative); URINE PROTEIN NEGATIVE (NEGATIVE); URINE UROBILINOGEN NORMAL mg/dL (0.2-1.0)
[2018-12-14] MEDS: Piperacill/Tazo 3.375gm in Dex 3.375 GM/50 ML BAG IVPB SCH ×3 (05:36→22:00)
[2018-12-14] MEDS: Levothyroxine 50 MCG TAB PO SCH (05:38)
[2018-12-14] MEDS: Multivitamin With Minerals Tab PO SCH (11:06)
[2018-12-14] MEDS: (Novolin R) Insulin Human Regular 100 units/ml vial SC SCH ×4 (11:10→22:01)
[2018-12-14] MEDS: Dakin's Topical 0.5%-Full Strength (480 ml) TOP SCH (11:12)
[2018-12-14] MEDS: Clotrimazole/Betamethasone Cream(15 gm) TOP SCH ×2 (11:14→18:15)
--- NOTE | 2018-12-14 12:46 | CP.PCM.PN ---
Subjective - Date & Time of Evaluation Date of Evaluation: 12/14/18 Time of Evaluation: 12:43 - Subjective Subjective: WOUND CULTURE GM NEG STAPH. MRI POSITIVE FOR OM OF TOE. DISCUSSED WITH DR. HUDSON, NEEDS AMPUTATION. WILL DISCUSS WITH PT. Objective - Vital Signs/Intake and Output Vital Signs (last 24 hours): Temp Pulse Resp BP Pulse Ox 98.0 F 82 20 117/68 98 12/14/18 07:52 12/14/18 07:52 12/14/18 07:52 12/14/18 11:06 12/14/18 07:52 Intake and Output: 12/14/18 12/14/18 06:59 18:59 Intake Total 850 Balance 850 - Medications Medications: Current Medications Betamethasone/Clotrimazole (Lotrisone) 0 gm TOP BID [facility] Last Admin: 12/14/18 11:14 Dose: 1 applic Dextrose (Dextrose 50% Inj) 0 ml IV STAT PRN; Protocol PRN Reason: Hypoglycemia Protocol Dextrose (Glutose 15) 0 gm PO ONCE PRN; Protocol PRN Reason: Hypoglycemia Protocol Enalapril Maleate (Vasotec) 2.5 mg PO DAILY [facility] Last Admin: 12/14/18 11:06 Dose: 2.5 mg Fenofibrate (Tricor) 48 mg PO HS [facility] Last Admin: 12/13/18 22:17 Dose: 48 mg Gabapentin (Neurontin) 300 mg PO TID [facility] Last Admin: 12/14/18 11:06 Dose: 300 mg Glimepiride (Amaryl) 2 mg PO ACB [facility] Last Admin: 12/14/18 08:15 Dose: 2 mg Glucagon (Glucagen Diagnostic Kit) 0 mg IM STAT PRN; Protocol PRN Reason: Hypoglycemia Protocol Heparin Sodium (Porcine) (Heparin) 5,000 units SC Q12 [facility] Last Admin: 12/14/18 11:11 Dose: Not Given Dextrose (Dextrose 5% In Water 1000 Ml) 1,000 mls @ 0 mls/hr IV .Q0M PRN; Protocol PRN Reason: Hypoglycemia Protocol Piperacillin Sod/Tazobactam Sod (Zosyn 3.375 Gm Iv Premix) 3.375 gm in 50 mls @ 100 mls/hr IVPB Q8H [facility]; Protocol Last Admin: 12/14/18 05:36 Dose: 100 mls/hr Vancomycin/Sodium Chloride (Vancomycin 1 Gm/Ns 200 Ml) 1 gm in 200 mls @ 133 mls/hr IVPB Q24H [facility]; Protocol Stop: 12/18/18 19:01 Last Admin: 12/13/18 19:11 Dose: 133 mls/hr Insulin Human Regular (Novolin R) 0 unit SC ACHS [facility]; Protocol Last Admin: 12/14/18 12:25 Dose: 3 units Levothyroxine Sodium (Synthroid) 50 mcg PO DAILY@0630 [facility] Last Admin: 12/14/18 05:38 Dose: 50 mcg Metformin HCl (Glucophage) 1,000 mg PO BIDCC [facility] Last Admin: 12/14/18 08:15 Dose: 1,000 mg Multivitamins/Minerals (Therapeutic-M Tab) 1 tab PO DAILY [facility] Last Admin: 12/14/18 11:06 Dose: 1 tab Pioglitazone HCl (Actos) 15 mg PO DAILY [facility] Last Admin: 12/14/18 11:10 Dose: 15 mg Sitagliptin Phosphate (Januvia) 100 mg PO DAILY [facility] Last Admin: 12/14/18 11:14 Dose: 100 mg Sodium Hypochlorite (Dakins Solution 0.5%) 0 ml TOP DAILY [facility] Last Admin: 12/14/18 11:12 Dose: Not Given - Labs Labs: 12/12/18 12:01 12/12/18 12:01 PT 11.5 SECONDS (9.7-12.2) 12/12/18 12:01 INR 1.1 12/12/18 12:01 APTT 30 SECONDS (21-34) 12/12/18 12:01 - Constitutional Appears: No Acute Distress, Chronically Ill - Eye Exam Eye Exam: PERRL - ENT Exam ENT Exam: Normal Exam - Respiratory Exam Respiratory Exam: Clear to Ausculation Bilateral, NORMAL BREATHING PATTERN - Cardiovascular Exam Cardiovascular Exam: REGULAR RHYTHM, +S1, +S2 - GI/Abdominal Exam GI & Abdominal Exam: Soft, Normal Bowel Sounds - Extremities Exam Additional comments: RT 3RD TOE OM. CELLULITIS. CAD. - Back Exam Back Exam: NORMAL INSPECTION - Neurological Exam Neurological Exam: Alert, Awake, CN II-XII Intact, Normal Gait, Oriented x3 - Psychiatric Exam Psychiatric exam: Normal Affect, Normal Mood Assessment and Plan - Assessment and Plan (Free Text) Assessment: OM TOE. 3RD RT. Plan: FOR AMPUTATION. IV ABTS.
--- NOTE | 2018-12-14 12:51 | CP.PCM.PN ---
Subjective - Date & Time of Evaluation Date of Evaluation: 12/14/18 Time of Evaluation: 12:51 - Subjective Subjective: PATIENT MEDICALLY CLEARED FOR SURGERY. Objective - Vital Signs/Intake and Output Vital Signs (last 24 hours): Temp Pulse Resp BP Pulse Ox 98.0 F 82 20 117/68 98 12/14/18 07:52 12/14/18 07:52 12/14/18 07:52 12/14/18 11:06 12/14/18 07:52 Intake and Output: 12/14/18 12/14/18 06:59 18:59 Intake Total 850 Balance 850 - Medications Medications: Current Medications Betamethasone/Clotrimazole (Lotrisone) 0 gm TOP BID [facility] Last Admin: 12/14/18 11:14 Dose: 1 applic Dextrose (Dextrose 50% Inj) 0 ml IV STAT PRN; Protocol PRN Reason: Hypoglycemia Protocol Dextrose (Glutose 15) 0 gm PO ONCE PRN; Protocol PRN Reason: Hypoglycemia Protocol Enalapril Maleate (Vasotec) 2.5 mg PO DAILY [facility] Last Admin: 12/14/18 11:06 Dose: 2.5 mg Fenofibrate (Tricor) 48 mg PO HS [facility] Last Admin: 12/13/18 22:17 Dose: 48 mg Gabapentin (Neurontin) 300 mg PO TID [facility] Last Admin: 12/14/18 11:06 Dose: 300 mg Glimepiride (Amaryl) 2 mg PO ACB [facility] Last Admin: 12/14/18 08:15 Dose: 2 mg Glucagon (Glucagen Diagnostic Kit) 0 mg IM STAT PRN; Protocol PRN Reason: Hypoglycemia Protocol Heparin Sodium (Porcine) (Heparin) 5,000 units SC Q12 [facility] Last Admin: 12/14/18 11:11 Dose: Not Given Dextrose (Dextrose 5% In Water 1000 Ml) 1,000 mls @ 0 mls/hr IV .Q0M PRN; Protocol PRN Reason: Hypoglycemia Protocol Piperacillin Sod/Tazobactam Sod (Zosyn 3.375 Gm Iv Premix) 3.375 gm in 50 mls @ 100 mls/hr IVPB Q8H [facility]; Protocol Last Admin: 12/14/18 05:36 Dose: 100 mls/hr Vancomycin/Sodium Chloride (Vancomycin 1 Gm/Ns 200 Ml) 1 gm in 200 mls @ 133 mls/hr IVPB Q24H [facility]; Protocol Stop: 12/18/18 19:01 Last Admin: 12/13/18 19:11 Dose: 133 mls/hr Insulin Human Regular (Novolin R) 0 unit SC ACHS [facility]; Protocol Last Admin: 12/14/18 12:25 Dose: 3 units Levothyroxine Sodium (Synthroid) 50 mcg PO DAILY@0630 [facility] Last Admin: 12/14/18 05:38 Dose: 50 mcg Metformin HCl (Glucophage) 1,000 mg PO BIDCC [facility] Last Admin: 12/14/18 08:15 Dose: 1,000 mg Multivitamins/Minerals (Therapeutic-M Tab) 1 tab PO DAILY [facility] Last Admin: 12/14/18 11:06 Dose: 1 tab Pioglitazone HCl (Actos) 15 mg PO DAILY [facility] Last Admin: 12/14/18 11:10 Dose: 15 mg Sitagliptin Phosphate (Januvia) 100 mg PO DAILY [facility] Last Admin: 12/14/18 11:14 Dose: 100 mg Sodium Hypochlorite (Dakins Solution 0.5%) 0 ml TOP DAILY [facility] Last Admin: 12/14/18 11:12 Dose: Not Given - Labs Labs: 12/12/18 12:01 12/12/18 12:01 PT 11.5 SECONDS (9.7-12.2) 12/12/18 12:01 INR 1.1 12/12/18 12:01 APTT 30 SECONDS (21-34) 12/12/18 12:01
--- NOTE | 2018-12-14 18:01 | CP.PCM.PN ---
Subjective - Date & Time of Evaluation Date of Evaluation: 12/14/18 Time of Evaluation: 17:58 - Subjective Subjective: Pt seen at bedside for right 3rd digit abscess and non healing ulcer. MRI confirms osteo of right 3rd digit. Active purulence still noted from right 3rd digit ulcer. Pt and family understand all risks and alternatives and consent to right 3rd digit amp. Pt and family understand that if healing is compromised future surgery and/or limb loss is possible. Pt is scheduled for amp tomorrow 12/15/18 at 12:30 PM. Pt has been cleared by Dr. Lindsay Marvin. Pt is NPO after midnight and anticoagulants have been held. Objective - Vital Signs/Intake and Output Vital Signs (last 24 hours): Temp Pulse Resp BP Pulse Ox 98.1 F 99 H 20 112/69 98 12/14/18 15:00 12/14/18 15:00 12/14/18 15:00 12/14/18 15:00 12/14/18 15:00 Intake and Output: 12/14/18 12/14/18 06:59 18:59 Intake Total 850 500 Balance 850 500 - Medications Medications: Current Medications Betamethasone/Clotrimazole (Lotrisone) 0 gm TOP BID [facility] Last Admin: 12/14/18 11:14 Dose: 1 applic Dextrose (Dextrose 50% Inj) 0 ml IV STAT PRN; Protocol PRN Reason: Hypoglycemia Protocol Dextrose (Glutose 15) 0 gm PO ONCE PRN; Protocol PRN Reason: Hypoglycemia Protocol Enalapril Maleate (Vasotec) 2.5 mg PO DAILY [facility] Last Admin: 12/14/18 11:06 Dose: 2.5 mg Fenofibrate (Tricor) 48 mg PO HS [facility] Last Admin: 12/13/18 22:17 Dose: 48 mg Gabapentin (Neurontin) 300 mg PO TID [facility] Last Admin: 12/14/18 13:44 Dose: 300 mg Glimepiride (Amaryl) 2 mg PO ACB [facility] Last Admin: 12/14/18 08:15 Dose: 2 mg Glucagon (Glucagen Diagnostic Kit) 0 mg IM STAT PRN; Protocol PRN Reason: Hypoglycemia Protocol Heparin Sodium (Porcine) (Heparin) 5,000 units SC Q12 [facility] Last Admin: 12/14/18 11:11 Dose: Not Given Dextrose (Dextrose 5% In Water 1000 Ml) 1,000 mls @ 0 mls/hr IV .Q0M PRN; Protocol PRN Reason: Hypoglycemia Protocol Piperacillin Sod/Tazobactam Sod (Zosyn 3.375 Gm Iv Premix) 3.375 gm in 50 mls @ 100 mls/hr IVPB Q8H [facility]; Protocol Last Admin: 12/14/18 13:44 Dose: 100 mls/hr Vancomycin/Sodium Chloride (Vancomycin 1 Gm/Ns 200 Ml) 1 gm in 200 mls @ 133 mls/hr IVPB Q24H [facility]; Protocol Stop: 12/18/18 19:01 Last Admin: 12/13/18 19:11 Dose: 133 mls/hr Insulin Human Regular (Novolin R) 0 unit SC ACHS [facility]; Protocol Last Admin: 12/14/18 12:25 Dose: 3 units Levothyroxine Sodium (Synthroid) 50 mcg PO DAILY@0630 [facility] Last Admin: 12/14/18 05:38 Dose: 50 mcg Metformin HCl (Glucophage) 1,000 mg PO BIDCC [facility] Last Admin: 12/14/18 08:15 Dose: 1,000 mg Multivitamins/Minerals (Therapeutic-M Tab) 1 tab PO DAILY [facility] Last Admin: 12/14/18 11:06 Dose: 1 tab Pioglitazone HCl (Actos) 15 mg PO DAILY [facility] Last Admin: 12/14/18 11:10 Dose: 15 mg Sitagliptin Phosphate (Januvia) 100 mg PO DAILY [facility] Last Admin: 12/14/18 11:14 Dose: 100 mg Sodium Hypochlorite (Dakins Solution 0.5%) 0 ml TOP DAILY [facility] Last Admin: 12/14/18 11:12 Dose: Not Given - Labs Labs: 12/12/18 12:01 12/12/18 12:01 PT 11.5 SECONDS (9.7-12.2) 12/12/18 12:01 INR 1.1 12/12/18 12:01 APTT 30 SECONDS (21-34) 12/12/18 12:01
[2018-12-14] MEDS: Vancomycin 1 gm/NS 200 ml 1 GM/200 ML BAG IVPB SCH (18:30)
--- NOTE | 2018-12-14 22:09 | CP.PCM.CON ---
History of Present Illness - History of Present Illness History of Present Illness: Patient seen and evaluated Known to me from long time Denies chest pain and dyspnea Hx of CAD and CABG Low to moderate cardiac risk for toe amputation under local anaesthesia and sedation Review Of Systems Except As Marked, All Systems Reviewed And Found Negative. Constitutional: Negative for: Fever, Weakness Cardiovascular: Negative for: Chest Pain Respiratory: Negative for: Shortness of Breath Gastrointestinal: Negative for: Vomiting, Abdominal Pain Genitourinary: Negative for: Dysuria, Incontinence, Hematuria Musculoskeletal: Positive for: Back Pain. Negative for: Neck Pain Skin: Negative for: Rash Neurological: Negative for: Weakness, Numbness, Seizures, Altered Mental Status, Headache, Dizziness Physical Exam - Physical Exam Appears: No Acute Distress Skin: Normal Color, Warm Eye(s): bilateral: Normal Inspection, PERRL, EOMI Ear(s): Bilateral: Normal Nose: Normal Throat: Normal (but with dry mucous membranes) Neck: Normal ROM Cardiovascular: Rhythm Regular, No Murmur Respiratory: Normal Breath Sounds, No Rales, No Rhonchi, No Wheezing Gastrointestinal/Abdominal: Bowel Sounds, Soft, Tenderness (mild diffuse), No Mass, No Distended Back: Normal Inspection Extremity: Normal ROM Pulses: Left Dorsalis Pedis: Normal, Right Dorsalis Pedis: Normal Neurological/Psych: Oriented x3, Normal Speech, Normal Cognition, Normal Cranial Nerves, Normal Motor, Normal Sensation, Normal Reflexes Assessment/Plan 78 F with hx of DM2, HTN, CAD s/p CABG for pre op cardiac Cardiac risk assessment Patient seen and evaluated Known to me from long time Denies chest pain and dyspnea Hx of CAD and CABG Low to moderate cardiac risk for toe amputation under local anaesthesia and sedation Past Patient History - Past Medical History & Family History Past Medical History?: Yes - Past Social History Smoking Status: Never Smoked - CARDIAC Hx Hypertension: Yes - PULMONARY Hx Respiratory Disorders: No - NEUROLOGICAL Hx Neurological Disorder: No - HEENT Hx HEENT Problems: Yes Hx Cataracts: Yes - RENAL Hx Chronic Kidney Disease: No - ENDOCRINE/METABOLIC Hx Hypothyroidism: Yes - HEMATOLOGICAL/ONCOLOGICAL Hx Blood Disorders: No - INTEGUMENTARY Hx Dermatological Problems: No - MUSCULOSKELETAL/RHEUMATOLOGICAL Hx Musculoskeletal Disorders: No Hx Falls: No - GASTROINTESTINAL Hx Gastritis: Yes - GENITOURINARY/GYNECOLOGICAL Hx Genitourinary Disorders: No - PSYCHIATRIC Hx Substance Use: No - SURGICAL HISTORY Hx Coronary Stent: Yes - ANESTHESIA Hx Anesthesia: Yes Hx Anesthesia Reactions: No Hx Malignant Hyperthermia: No Meds Allergies/Adverse Reactions: Allergies Allergy/AdvReac Type Severity Reaction Status Date / Time No Known Allergies Allergy Verified 12/12/18 11:27 - Medications Medications: Current Medications Betamethasone/Clotrimazole (Lotrisone) 0 gm TOP BID [facility] Last Admin: 12/14/18 18:15 Dose: 1 applic Dextrose (Dextrose 50% Inj) 0 ml IV STAT PRN; Protocol PRN Reason: Hypoglycemia Protocol Dextrose (Glutose 15) 0 gm PO ONCE PRN; Protocol PRN Reason: Hypoglycemia Protocol Enalapril Maleate (Vasotec) 2.5 mg PO DAILY [facility] Last Admin: 12/14/18 11:06 Dose: 2.5 mg Fenofibrate (Tricor) 48 mg PO HS [facility] Last Admin: 12/14/18 22:01 Dose: 48 mg Gabapentin (Neurontin) 300 mg PO TID [facility] Last Admin: 12/14/18 18:15 Dose: 300 mg Glimepiride (Amaryl) 2 mg PO ACB [facility] Last Admin: 12/14/18 08:15 Dose: 2 mg Glucagon (Glucagen Diagnostic Kit) 0 mg IM STAT PRN; Protocol PRN Reason: Hypoglycemia Protocol Heparin Sodium (Porcine) (Heparin) 5,000 units SC Q12 [facility] Last Admin: 12/14/18 11:11 Dose: Not Given Dextrose (Dextrose 5% In Water 1000 Ml) 1,000 mls @ 0 mls/hr IV .Q0M PRN; Protocol PRN Reason: Hypoglycemia Protocol Piperacillin Sod/Tazobactam Sod (Zosyn 3.375 Gm Iv Premix) 3.375 gm in 50 mls @ 100 mls/hr IVPB Q8H [facility]; Protocol Last Admin: 12/14/18 22:00 Dose: 100 mls/hr Vancomycin/Sodium Chloride (Vancomycin 1 Gm/Ns 200 Ml) 1 gm in 200 mls @ 133 mls/hr IVPB Q24H [facility]; Protocol Stop: 12/18/18 19:01 Last Admin: 12/14/18 18:30 Dose: 133 mls/hr Insulin Human Regular (Novolin R) 0 unit SC ACHS [facility]; Protocol Last Admin: 12/14/18 22:01 Dose: Not Given Levothyroxine Sodium (Synthroid) 50 mcg PO DAILY@0630 [facility] Last Admin: 12/14/18 05:38 Dose: 50 mcg Metformin HCl (Glucophage) 1,000 mg PO BIDCC [facility] Last Admin: 12/14/18 18:15 Dose: 1,000 mg Multivitamins/Minerals (Therapeutic-M Tab) 1 tab PO DAILY [facility] Last Admin: 12/14/18 11:06 Dose: 1 tab Pioglitazone HCl (Actos) 15 mg PO DAILY [facility] Last Admin: 12/14/18 11:10 Dose: 15 mg Sitagliptin Phosphate (Januvia) 100 mg PO DAILY [facility] Last Admin: 12/14/18 11:14 Dose: 100 mg Sodium Hypochlorite (Dakins Solution 0.5%) 0 ml TOP DAILY [facility] Last Admin: 12/14/18 11:12 Dose: Not Given Results - Vital Signs Recent Vital Signs: Last Vital Signs Temp 98.1 F 12/14/18 15:00 Pulse 99 H 12/14/18 15:00 Resp 20 12/14/18 15:00 BP 112/69 12/14/18 15:00 Pulse Ox 98 12/14/18 15:00 - Labs Result Diagrams: 12/12/18 12:01 12/12/18 12:01 Labs: Laboratory Results - last 24 hr 12/14/18 12/14/18 12/14/18 07:18 08:00 08:00 ESR 108 H POC Glucose (mg/dL) 127 H C-React Prot High Sens 11.01 H 12/14/18 12/14/18 12/14/18 11:28 16:14 21:16 ESR POC Glucose (mg/dL) 212 H 114 H 115 H C-React Prot High Sens
[2018-12-15] MEDS: Piperacill/Tazo 3.375gm in Dex 3.375 GM/50 ML BAG IVPB SCH ×3 (05:35→22:04)
[2018-12-15] MEDS: Levothyroxine 50 MCG TAB PO SCH (05:39)
[2018-12-15] MEDS: (Novolin R) Insulin Human Regular 100 units/ml vial SC SCH ×4 (08:10→22:04)
[2018-12-15] MEDS: Multivitamin With Minerals Tab PO SCH (10:24)
--- NOTE | 2018-12-15 12:15 | CP.PCM.PN ---
Subjective - Date & Time of Evaluation Date of Evaluation: 12/15/18 Time of Evaluation: 12:13 - Subjective Subjective: CINDITION SAME. DISCUSSED WITH DR. HUDSON FOR AMPUTATION RT 3RD TOE. Objective - Vital Signs/Intake and Output Vital Signs (last 24 hours): Temp Pulse Resp BP Pulse Ox 97.7 F 83 20 120/70 100 12/15/18 07:29 12/15/18 07:29 12/15/18 07:29 12/15/18 07:29 12/15/18 07:29 Intake and Output: 12/15/18 12/15/18 06:59 18:59 Intake Total 650 Balance 650 - Medications Medications: Current Medications Betamethasone/Clotrimazole (Lotrisone) 0 gm TOP BID [facility] Last Admin: 12/14/18 18:15 Dose: 1 applic Dextrose (Dextrose 50% Inj) 0 ml IV STAT PRN; Protocol PRN Reason: Hypoglycemia Protocol Dextrose (Glutose 15) 0 gm PO ONCE PRN; Protocol PRN Reason: Hypoglycemia Protocol Enalapril Maleate (Vasotec) 2.5 mg PO DAILY [facility] Last Admin: 12/15/18 10:25 Dose: Not Given Fenofibrate (Tricor) 48 mg PO HS [facility] Last Admin: 12/14/18 22:01 Dose: 48 mg Gabapentin (Neurontin) 300 mg PO TID [facility] Last Admin: 12/15/18 10:24 Dose: Not Given Glimepiride (Amaryl) 2 mg PO ACB [facility] Last Admin: 12/15/18 08:09 Dose: Not Given Glucagon (Glucagen Diagnostic Kit) 0 mg IM STAT PRN; Protocol PRN Reason: Hypoglycemia Protocol Heparin Sodium (Porcine) (Heparin) 5,000 units SC Q12 [facility] Last Admin: 12/14/18 11:11 Dose: Not Given Dextrose (Dextrose 5% In Water 1000 Ml) 1,000 mls @ 0 mls/hr IV .Q0M PRN; Protocol PRN Reason: Hypoglycemia Protocol Piperacillin Sod/Tazobactam Sod (Zosyn 3.375 Gm Iv Premix) 3.375 gm in 50 mls @ 100 mls/hr IVPB Q8H [facility]; Protocol Last Admin: 12/15/18 05:35 Dose: 100 mls/hr Vancomycin/Sodium Chloride (Vancomycin 1 Gm/Ns 200 Ml) 1 gm in 200 mls @ 133 mls/hr IVPB Q24H [facility]; Protocol Stop: 12/18/18 19:01 Last Admin: 12/14/18 18:30 Dose: 133 mls/hr Insulin Human Regular (Novolin R) 0 unit SC ACHS [facility]; Protocol Last Admin: 12/15/18 08:10 Dose: Not Given Levothyroxine Sodium (Synthroid) 50 mcg PO DAILY@0630 [facility] Last Admin: 12/15/18 05:39 Dose: Not Given Metformin HCl (Glucophage) 1,000 mg PO BIDCC [facility] Last Admin: 12/15/18 08:10 Dose: Not Given Multivitamins/Minerals (Therapeutic-M Tab) 1 tab PO DAILY [facility] Last Admin: 12/15/18 10:24 Dose: Not Given Pioglitazone HCl (Actos) 15 mg PO DAILY [facility] Last Admin: 12/15/18 10:21 Dose: Not Given Sitagliptin Phosphate (Januvia) 100 mg PO DAILY [facility] Last Admin: 12/15/18 10:23 Dose: Not Given Sodium Hypochlorite (Dakins Solution 0.5%) 0 ml TOP DAILY [facility] Last Admin: 12/14/18 11:12 Dose: Not Given - Labs Labs: 12/12/18 12:01 12/12/18 12:01 PT 11.5 SECONDS (9.7-12.2) 12/12/18 12:01 INR 1.1 12/12/18 12:01 APTT 30 SECONDS (21-34) 12/12/18 12:01 - Constitutional Appears: No Acute Distress, Chronically Ill - Eye Exam Eye Exam: PERRL - ENT Exam ENT Exam: Mucous Membranes Moist - Respiratory Exam Respiratory Exam: Clear to Ausculation Bilateral, NORMAL BREATHING PATTERN - Cardiovascular Exam Cardiovascular Exam: REGULAR RHYTHM, +S1, +S2 - GI/Abdominal Exam GI & Abdominal Exam: Soft, Normal Bowel Sounds - Extremities Exam Extremities Exam: Full ROM, Normal Capillary Refill, Normal Inspection. absent: Joint Swelling, Pedal Edema - Back Exam Back Exam: NORMAL INSPECTION - Neurological Exam Neurological Exam: Alert, Awake, CN II-XII Intact, Normal Gait, Oriented x3 - Psychiatric Exam Psychiatric exam: Normal Affect, Normal Mood Assessment and Plan - Assessment and Plan (Free Text) Assessment: OM TOE Plan: FOR OR.
[2018-12-15] MEDS: Dakin's Topical 0.5%-Full Strength (480 ml) TOP SCH (12:16)
[2018-12-15] MEDS ORDERED: Bupivacaine HCl 0.5% PF (10 ml) Inj ONE ×2 (12:23→14:14)
[2018-12-15] MEDS ORDERED: Lidocaine 2% MPF (5 ml) Inj ONE ×3 (12:23→14:14)
--- NOTE | 2018-12-15 14:32 | PCM.SURG1 ---
Surgeon's Initial Post Op Note - Surgeon's Notes Surgeon: Dr. Fady Bay, DPM Hunting Guide: Marlyn Bay, PGy1 Type of Anesthesia: Local Anesthesia Administered By: Dr. Harley Pre-Operative Diagnosis: right third digit osteomyelitis Operative Findings: see dictation. Injectibles: 20 cc of 2% lidocaine and .5% marcaine plain. materials: 3-0 vicryl and 4-0 nylon Post-Operative Diagnosis: same Operation Performed: Right third digit amputation Specimen/Specimens Removed: right third digit Estimated Blood Loss: EBL {In ML}: 10 Blood Products Given: N/A Drains Used: No Drains Post-Op Condition: Good Date of Surgery/Procedure: 12/15/18 Time of Surgery/Procedure: 14:32
[2018-12-15] MEDS ORDERED: Oxycodone/Acetaminophen 5/325 mg Tab PO PRN ×2 (14:33)
[2018-12-15] MEDS: Lactated Ringer's 1,000 ML IV SCH (16:00)
--- NOTE | 2018-12-15 16:30 | RAD ---
Date of service: 12/15/2018 PROCEDURE: Right Foot Radiographs. HISTORY: s/p third digit amputation COMPARISON: Right foot radiographs 12/12/2018. FINDINGS: BONES: The right 3rd digit amputation. No interval acute fracture or dislocation appreciable. Postop change is seen at the soft tissues distal to the 3rd metatarsal bone with distal 3rd metatarsal bone segment appearing unremarkable. JOINTS: Degenerative joint disease seen throughout the joints of the right foot diffusely but seen worst at the 1st metatarsophalangeal joint. SOFT TISSUES: As per above. OTHER FINDINGS: None. IMPRESSION: Interval amputation right 3rd digit with postop changes noted distal to the 3rd metatarsal bone. Exam otherwise stable in the interval.
[2018-12-15] MEDS: Clotrimazole/Betamethasone Cream(15 gm) TOP SCH (17:52)
[2018-12-15] MEDS: Vancomycin 1 gm/NS 200 ml 1 GM/200 ML BAG IVPB SCH (18:05)
--- NOTE | 2018-12-15 19:34 | CP.PCM.PN ---
Subjective - Date & Time of Evaluation Date of Evaluation: 12/15/18 Time of Evaluation: 08:00 - Subjective Subjective: stable s/p amp digit right foot Objective - Vital Signs/Intake and Output Vital Signs (last 24 hours): Temp Pulse Resp BP Pulse Ox 97.5 F L 97 H 20 118/70 98 12/15/18 17:00 12/15/18 17:00 12/15/18 17:00 12/15/18 17:00 12/15/18 17:00 Intake and Output: 12/15/18 12/16/18 18:59 06:59 Intake Total 125 Balance 125 - Medications Medications: Current Medications Acetaminophen (Tylenol 325mg Tab) 650 mg PO Q6 PRN PRN Reason: Pain, Mild (1-3) Betamethasone/Clotrimazole (Lotrisone) 0 gm TOP BID [facility] Last Admin: 12/15/18 17:52 Dose: 1 applic Dextrose (Dextrose 50% Inj) 0 ml IV STAT PRN; Protocol PRN Reason: Hypoglycemia Protocol Dextrose (Glutose 15) 0 gm PO ONCE PRN; Protocol PRN Reason: Hypoglycemia Protocol Enalapril Maleate (Vasotec) 2.5 mg PO DAILY [facility] Last Admin: 12/15/18 10:25 Dose: Not Given Fenofibrate (Tricor) 48 mg PO HS [facility] Last Admin: 12/14/18 22:01 Dose: 48 mg Gabapentin (Neurontin) 300 mg PO TID [facility] Last Admin: 12/15/18 17:52 Dose: 300 mg Glimepiride (Amaryl) 2 mg PO ACB [facility] Last Admin: 12/15/18 08:09 Dose: Not Given Glucagon (Glucagen Diagnostic Kit) 0 mg IM STAT PRN; Protocol PRN Reason: Hypoglycemia Protocol Heparin Sodium (Porcine) (Heparin) 5,000 units SC Q12 [facility] Last Admin: 12/14/18 11:11 Dose: Not Given Piperacillin Sod/Tazobactam Sod (Zosyn 3.375 Gm Iv Premix) 3.375 gm in 50 mls @ 100 mls/hr IVPB Q8H [facility]; Protocol Last Admin: 12/15/18 13:45 Dose: 50 mls Vancomycin/Sodium Chloride (Vancomycin 1 Gm/Ns 200 Ml) 1 gm in 200 mls @ 133 mls/hr IVPB Q24H [facility]; Protocol Stop: 12/18/18 19:01 Last Admin: 12/15/18 18:05 Dose: 133 mls/hr Lactated Ringer's (Lactated Ringer's) 1,000 mls @ 70 mls/hr IV .[id number] [facility] Last Admin: 12/15/18 16:00 Dose: 70 mls/hr Insulin Human Regular (Novolin R) 0 unit SC ACHS [facility]; Protocol Last Admin: 12/15/18 17:53 Dose: Not Given Levothyroxine Sodium (Synthroid) 50 mcg PO DAILY@0630 [facility] Last Admin: 12/15/18 05:39 Dose: Not Given Metformin HCl (Glucophage) 1,000 mg PO BIDCC [facility] Last Admin: 12/15/18 17:50 Dose: 1,000 mg Multivitamins/Minerals (Therapeutic-M Tab) 1 tab PO DAILY [facility] Last Admin: 12/15/18 10:24 Dose: Not Given Oxycodone/Acetaminophen (Percocet 5/325 Mg Tab) 1 tab PO Q6H PRN PRN Reason: Pain, moderate (4-7) Stop: 12/18/18 14:34 Oxycodone/Acetaminophen (Percocet 5/325 Mg Tab) 2 tab PO Q6H PRN PRN Reason: Pain, severe (8-10) Stop: 12/18/18 14:34 Pioglitazone HCl (Actos) 15 mg PO DAILY [facility] Last Admin: 12/15/18 10:21 Dose: Not Given Sitagliptin Phosphate (Januvia) 100 mg PO DAILY [facility] Last Admin: 12/15/18 10:23 Dose: Not Given Sodium Hypochlorite (Dakins Solution 0.5%) 0 ml TOP DAILY [facility] Last Admin: 12/15/18 12:16 Dose: Not Given - Labs Labs: 12/12/18 12:01 12/12/18 12:01 PT 11.5 SECONDS (9.7-12.2) 12/12/18 12:01 INR 1.1 12/12/18 12:01 APTT 30 SECONDS (21-34) 12/12/18 12:01 - Constitutional Appears: Well - Head Exam Head Exam: ATRAUMATIC, NORMAL INSPECTION, NORMOCEPHALIC - Eye Exam Eye Exam: EOMI, Normal appearance, PERRL Pupil Exam: NORMAL ACCOMODATION, PERRL - ENT Exam ENT Exam: Mucous Membranes Moist, Normal Exam - Neck Exam Neck Exam: Full ROM, Normal Inspection. absent: Lymphadenopathy - Respiratory Exam Respiratory Exam: Clear to Ausculation Bilateral, NORMAL BREATHING PATTERN - Cardiovascular Exam Cardiovascular Exam: REGULAR RHYTHM, +S1, +S2. absent: Murmur - GI/Abdominal Exam GI & Abdominal Exam: Soft, Normal Bowel Sounds. absent: Tenderness - Rectal Exam Rectal Exam: NORMAL INSPECTION - Extremities Exam Extremities Exam: Full ROM, Normal Capillary Refill, Normal Inspection. absent: Joint Swelling, Pedal Edema - Back Exam Back Exam: NORMAL INSPECTION - Neurological Exam Neurological Exam: Alert, Awake, CN II-XII Intact, Normal Gait, Oriented x3 - Psychiatric Exam Psychiatric exam: Normal Affect, Normal Mood - Skin Skin Exam: Dry, Intact, Normal Color, Warm Assessment and Plan (1) Cellulitis Status: Acute (2) Non-STEMI (non-ST elevated myocardial infarction) Status: Acute - Assessment and Plan (Free Text) Assessment: cont iv then po rx for 5 -7 days post op
--- NOTE | 2018-12-16 01:47 | OP ---
PROCEDURE DATE: 12/15/2018 SURGEON: Fady Bay DPM [employer] DEVELOPER: Marlyn Bay, PGY-1 ANESTHESIOLOGIST: Douglas Harley MD ANESTHESIA: Local. PREOPERATIVE DIAGNOSIS: Infection of the third digit on the right foot with osteomyelitis. POSTOPERATIVE DIAGNOSIS: Infection of the third digit on the right foot with osteomyelitis. PROCEDURE: Amputation of the third digit on the right foot. INDICATION: The patient is a 78-year-old female with the above diagnosis. The patient has exhausted all conservative treatments at this time and now requires surgical intervention. The patient signed the consent after careful explanation of risks, benefits, complications, and alternatives for the surgical procedure. No guarantees were given nor implied. NPO status was confirmed prior to taking the patient to the OR. PREPARATION: The patient was brought into the operating room and placed on the operating room table in a supine position. A time-out was performed for identification of the correct patient and procedure. The patient received a total of 20 mL of 1:1 mixture of 0.5% Marcaine plain and 2% lidocaine plain in a local block type fashion to the right foot third digit. The right foot was then prepped and draped in a normal sterile manner, and the procedure began. No tourniquet was utilized during this procedure. DESCRIPTION OF PROCEDURE: Attention was then drawn to the dorsal aspect of the right third digit where a purulent blister was noted on the dorsal and medial aspects with active purulent drainage. A racquet type incision was made circumferentially at the level of PIPJ using a #15 blade. The incision was then extended down to the subcutaneous layers down to the level of bone taking care of all neurovascular structures and cauterizing bleeding vessels as necessary. Using a bone clamp to stabilize the toes, the third digit was then disarticulated from the foot at the level MPJ, and the third digit was packed from the operative field and sent to Pathology. Using a #15 blade, the soft tissue was then debulked off that which was passed off from the operative field. Next, the surgical site was copiously flushed with sterile saline. At this time, a 3-0 Vicryl was used to reapproximate the subcutaneous tissue, and 4-0 nylon was used to reapproximate the skin edges. The site was then dressed with Betadine-soaked Adaptic, 4x4, Kerlix, and Lang with no compression. POSTOPERATIVE CONDITION: The patient tolerated the anesthesia and procedure well and was escorted to the recovery room with vital signs stable and neurovascular status intact to the right foot. The patient will be strict nonweightbearing at this time. Podiatry will continue to follow while she remains in-house. Upon discharge, the patient is to follow up with Dr. Bay at his office. MARLYN BAY Fady Bay DPM
[2018-12-16] MEDS: Lactated Ringer's 1,000 ML IV SCH ×2 (03:53→19:25)
[2018-12-16] MEDS: Piperacill/Tazo 3.375gm in Dex 3.375 GM/50 ML BAG IVPB SCH ×3 (05:31→21:33)
[2018-12-16] MEDS: Levothyroxine 50 MCG TAB PO SCH (05:33)
[2018-12-16] MEDS: (Novolin R) Insulin Human Regular 100 units/ml vial SC SCH ×4 (08:48→21:59)
--- NOTE | 2018-12-16 09:58 | CARD ---
APPROVED REPORT Date of service: 12/15/2018 EXAM: Two-dimensional and M-mode echocardiogram with Doppler and color Doppler. Other Information Quality : GoodRhythm : INDICATION Cardiac Disease: CAD coronary stent Surgery/Intervention CABG: RISK FACTORS Hypertension 2D DIMENSIONS IVSd0.9 (0.7-1.1cm)LVDd4.3 (3.9-5.9cm) PWd0.8 (0.7-1.1cm)LA [id number] (18-58mL) LVDs3.1 (2.5-4.0cm)FS (%) 27.4 % LVEF (%)53.5 (>50%)LVEF (Jimenez's)57.92 % M-Mode DIMENSIONS Left Atrium (MM)3.23 (2.5-4.0cm)IVSd0.78 (0.7-1.1cm) Aortic Root2.98 (2.2-3.7cm)LVDd4.27 (4.0-5.6cm) Aortic Cusp Exc.1.85 (1.5-2.0cm)PWd0.59 (0.7-1.1cm) FS (%) 24 %LVDs3.24 (2.0-3.8cm) LVEF (%)49 (>50%) Mitral Valve MV E Ndnrakab733.5cm/sMV E Peak Gr.8mmHgMV A Uphrmaok434.2cm/s MV E Mean Gr.5mmHgMV KOM216ngC/A ratio0.9 MVA (PHT)2.14cm2 TDI Lateral E' Peak V8.67cm/sMedial E' Peak V5.25cm/sE/Lateral E'14.2 E/Medial E'23.5 Tricuspid Valve TR Peak Sjfntctx096im/sTR Peak Gr.[id number] LEFT VENTRICLE The left ventricle is normal size. There is normal left ventricular wall thickness. Left ventricle systolic function is normal. The Ejection Fraction is 55-60%. There is normal LV segmental wall motion. Tissue Doppler imaging reveals abnormal left ventricular diastolic dysfunction. RIGHT VENTRICLE The right ventricle is normal size. There is normal right ventricular wall thickness. The right ventricular systolic function is normal. ATRIA The left atrium size is normal. The right atrium size is normal. The interatrial septum is intact with no evidence for an atrial septal defect. AORTIC VALVE The aortic valve is normal in structure. No aortic regurgitation is present. There is no aortic valvular stenosis. MITRAL VALVE The mitral valve is normal in structure. There is no evidence of mitral valve prolapse. There is no mitral valve stenosis. Mitral regurgitation is mild. TRICUSPID VALVE The tricuspid valve is normal in structure. There is mild tricuspid regurgitation. Right ventricular systolic pressure is estimated at 40-50 mmHg. There is mild-moderate pulmonary hypertension. PULMONIC VALVE The pulmonic valve is not well visualized. There is mild pulmonic valvular regurgitation. GREAT VESSELS The aortic root is normal in size. PERICARDIAL EFFUSION There is no significant pericardial effusion. <Conclusion> Left ventricle systolic function is normal. The Ejection Fraction is 55-60%. Diastolic dysfunction. No aortic regurgitation is present. Mitral regurgitation is mild. There is mild tricuspid regurgitation. There is mild-moderate pulmonary hypertension. There is mild pulmonic valvular regurgitation.
[2018-12-16] MEDS: Multivitamin With Minerals Tab PO SCH (10:02)
[2018-12-16] MEDS: Dakin's Topical 0.5%-Full Strength (480 ml) TOP SCH (10:03)
[2018-12-16] MEDS: Clotrimazole/Betamethasone Cream(15 gm) TOP SCH ×2 (10:04→18:30)
--- NOTE | 2018-12-16 10:41 | CP.PCM.PN ---
Subjective - Date & Time of Evaluation Date of Evaluation: 12/16/18 Time of Evaluation: 10:40 - Subjective Subjective: post op. afebrile. stable. Objective - Vital Signs/Intake and Output Vital Signs (last 24 hours): Temp Pulse Resp BP Pulse Ox 97.5 F L 85 20 125/71 97 12/16/18 08:00 12/16/18 08:00 12/16/18 08:00 12/16/18 10:01 12/16/18 08:00 Intake and Output: 12/16/18 12/16/18 06:59 18:59 Intake Total 1000 780 Balance 1000 780 - Medications Medications: Current Medications Acetaminophen (Tylenol 325mg Tab) 650 mg PO Q6 PRN PRN Reason: Pain, Mild (1-3) Betamethasone/Clotrimazole (Lotrisone) 0 gm TOP BID [facility] Last Admin: 12/16/18 10:04 Dose: 1 applic Dextrose (Dextrose 50% Inj) 0 ml IV STAT PRN; Protocol PRN Reason: Hypoglycemia Protocol Dextrose (Glutose 15) 0 gm PO ONCE PRN; Protocol PRN Reason: Hypoglycemia Protocol Enalapril Maleate (Vasotec) 2.5 mg PO DAILY [facility] Last Admin: 12/16/18 10:01 Dose: 2.5 mg Fenofibrate (Tricor) 48 mg PO HS [facility] Last Admin: 12/15/18 22:04 Dose: 48 mg Gabapentin (Neurontin) 300 mg PO TID [facility] Last Admin: 12/16/18 10:02 Dose: 300 mg Glimepiride (Amaryl) 2 mg PO ACB [facility] Last Admin: 12/16/18 08:52 Dose: Not Given Glucagon (Glucagen Diagnostic Kit) 0 mg IM STAT PRN; Protocol PRN Reason: Hypoglycemia Protocol Heparin Sodium (Porcine) (Heparin) 5,000 units SC Q12 [facility] Last Admin: 12/14/18 11:11 Dose: Not Given Piperacillin Sod/Tazobactam Sod (Zosyn 3.375 Gm Iv Premix) 3.375 gm in 50 mls @ 100 mls/hr IVPB Q8H [facility]; Protocol Last Admin: 12/16/18 05:31 Dose: 100 mls/hr Vancomycin/Sodium Chloride (Vancomycin 1 Gm/Ns 200 Ml) 1 gm in 200 mls @ 133 mls/hr IVPB Q24H [facility]; Protocol Stop: 12/18/18 19:01 Last Admin: 12/15/18 18:05 Dose: 133 mls/hr Lactated Ringer's (Lactated Ringer's) 1,000 mls @ 70 mls/hr IV .[id number] [facility] Last Admin: 12/16/18 03:53 Dose: 70 mls/hr Insulin Human Regular (Novolin R) 0 unit SC ACHS [facility]; Protocol Last Admin: 12/16/18 08:48 Dose: Not Given Levothyroxine Sodium (Synthroid) 50 mcg PO DAILY@0630 [facility] Last Admin: 12/16/18 05:33 Dose: 50 mcg Metformin HCl (Glucophage) 1,000 mg PO BIDCC [facility] Last Admin: 12/16/18 08:52 Dose: Not Given Multivitamins/Minerals (Therapeutic-M Tab) 1 tab PO DAILY [facility] Last Admin: 12/16/18 10:02 Dose: 1 tab Oxycodone/Acetaminophen (Percocet 5/325 Mg Tab) 1 tab PO Q6H PRN PRN Reason: Pain, moderate (4-7) Stop: 12/18/18 14:34 Oxycodone/Acetaminophen (Percocet 5/325 Mg Tab) 2 tab PO Q6H PRN PRN Reason: Pain, severe (8-10) Stop: 12/18/18 14:34 Pioglitazone HCl (Actos) 15 mg PO DAILY [facility] Last Admin: 12/16/18 10:02 Dose: 15 mg Sitagliptin Phosphate (Januvia) 100 mg PO DAILY [facility] Last Admin: 12/16/18 10:03 Dose: Not Given Sodium Hypochlorite (Dakins Solution 0.5%) 0 ml TOP DAILY [facility] Last Admin: 12/16/18 10:03 Dose: Not Given - Labs Labs: 12/12/18 12:01 12/12/18 12:01 PT 11.5 SECONDS (9.7-12.2) 12/12/18 12:01 INR 1.1 12/12/18 12:01 APTT 30 SECONDS (21-34) 12/12/18 12:01 - Constitutional Appears: No Acute Distress, Chronically Ill - Eye Exam Eye Exam: Normal appearance, PERRL - ENT Exam ENT Exam: Mucous Membranes Moist - Respiratory Exam Respiratory Exam: Clear to Ausculation Bilateral, NORMAL BREATHING PATTERN - Cardiovascular Exam Cardiovascular Exam: REGULAR RHYTHM, +S1, +S2 - GI/Abdominal Exam GI & Abdominal Exam: Soft, Normal Bowel Sounds - Extremities Exam Extremities Exam: Full ROM, Normal Capillary Refill, Normal Inspection. absent: Joint Swelling, Pedal Edema - Back Exam Back Exam: NORMAL INSPECTION - Neurological Exam Neurological Exam: Alert, Awake, CN II-XII Intact, Normal Gait, Oriented x3 Assessment and Plan - Assessment and Plan (Free Text) Assessment: same. Plan: ct present treatment.
--- NOTE | 2018-12-16 13:05 | CP.PCM.PN ---
Subjective - Date & Time of Evaluation Date of Evaluation: 12/16/18 Time of Evaluation: 13:02 - Subjective Subjective: Podiatry progress note for Dr. Fady Bay 78 y/o female patient seen at bedside POD right 3rd digit amputation with family at bedside. Patient states her pain is controlled and no acute overnight events. Patient denies fever, nausea, vomiting, chest pain or shortness of breath. Patient states she would like to be at a subacute facility close to home. Objective - Vital Signs/Intake and Output Vital Signs (last 24 hours): Temp Pulse Resp BP Pulse Ox 97.5 F L 85 20 125/71 97 12/16/18 08:00 12/16/18 08:00 12/16/18 08:00 12/16/18 10:01 12/16/18 08:00 Intake and Output: 12/16/18 12/16/18 06:59 18:59 Intake Total 1000 780 Balance 1000 780 - Medications Medications: Current Medications Acetaminophen (Tylenol 325mg Tab) 650 mg PO Q6 PRN PRN Reason: Pain, Mild (1-3) Betamethasone/Clotrimazole (Lotrisone) 0 gm TOP BID [facility] Last Admin: 12/16/18 10:04 Dose: 1 applic Dextrose (Dextrose 50% Inj) 0 ml IV STAT PRN; Protocol PRN Reason: Hypoglycemia Protocol Dextrose (Glutose 15) 0 gm PO ONCE PRN; Protocol PRN Reason: Hypoglycemia Protocol Enalapril Maleate (Vasotec) 2.5 mg PO DAILY [facility] Last Admin: 12/16/18 10:01 Dose: 2.5 mg Fenofibrate (Tricor) 48 mg PO HS [facility] Last Admin: 12/15/18 22:04 Dose: 48 mg Gabapentin (Neurontin) 300 mg PO TID [facility] Last Admin: 12/16/18 10:02 Dose: 300 mg Glimepiride (Amaryl) 2 mg PO ACB [facility] Last Admin: 12/16/18 08:52 Dose: Not Given Glucagon (Glucagen Diagnostic Kit) 0 mg IM STAT PRN; Protocol PRN Reason: Hypoglycemia Protocol Heparin Sodium (Porcine) (Heparin) 5,000 units SC Q12 [facility] Last Admin: 12/14/18 11:11 Dose: Not Given Piperacillin Sod/Tazobactam Sod (Zosyn 3.375 Gm Iv Premix) 3.375 gm in 50 mls @ 100 mls/hr IVPB Q8H [facility]; Protocol Last Admin: 12/16/18 05:31 Dose: 100 mls/hr Vancomycin/Sodium Chloride (Vancomycin 1 Gm/Ns 200 Ml) 1 gm in 200 mls @ 133 mls/hr IVPB Q24H [facility]; Protocol Stop: 12/18/18 19:01 Last Admin: 12/15/18 18:05 Dose: 133 mls/hr Lactated Ringer's (Lactated Ringer's) 1,000 mls @ 70 mls/hr IV .[id number] [facility] Last Admin: 12/16/18 03:53 Dose: 70 mls/hr Insulin Human Regular (Novolin R) 0 unit SC ACHS [facility]; Protocol Last Admin: 12/16/18 12:34 Dose: 2 units Levothyroxine Sodium (Synthroid) 50 mcg PO DAILY@0630 [facility] Last Admin: 12/16/18 05:33 Dose: 50 mcg Metformin HCl (Glucophage) 1,000 mg PO BIDCC [facility] Last Admin: 12/16/18 08:52 Dose: Not Given Multivitamins/Minerals (Therapeutic-M Tab) 1 tab PO DAILY [facility] Last Admin: 12/16/18 10:02 Dose: 1 tab Oxycodone/Acetaminophen (Percocet 5/325 Mg Tab) 1 tab PO Q6H PRN PRN Reason: Pain, moderate (4-7) Stop: 12/18/18 14:34 Oxycodone/Acetaminophen (Percocet 5/325 Mg Tab) 2 tab PO Q6H PRN PRN Reason: Pain, severe (8-10) Stop: 12/18/18 14:34 Pioglitazone HCl (Actos) 15 mg PO DAILY [facility] Last Admin: 12/16/18 10:02 Dose: 15 mg Sitagliptin Phosphate (Januvia) 100 mg PO DAILY [facility] Last Admin: 12/16/18 10:03 Dose: Not Given Sodium Hypochlorite (Dakins Solution 0.5%) 0 ml TOP DAILY [facility] Last Admin: 12/16/18 10:03 Dose: Not Given - Labs Labs: 12/12/18 12:01 12/12/18 12:01 PT 11.5 SECONDS (9.7-12.2) 12/12/18 12:01 INR 1.1 12/12/18 12:01 APTT 30 SECONDS (21-34) 12/12/18 12:01 - Constitutional Appears: Well, Non-toxic, No Acute Distress - Head Exam Head Exam: ATRAUMATIC, NORMOCEPHALIC - Extremities Exam Additional comments: Lower extremity focused exam: Vasc: DP/PT pulses palpable 2/4 B/L. Temperature gradient warm to warm on right foot, warm to cool on LLE. CFT < 3 sec to all remaining digits Derm: amputation noted of the 3rd digit with sutures intact, no wound dehiscence, minimal sero-sanguinous drainage, no malodor, callus noted to the tip of the left 3rd, no other open wounds or signs of infection Neuro: protective and gross sensation intact Ortho: mild tenderness at amputation site - Neurological Exam Neurological Exam: Alert, Awake, Oriented x3 - Psychiatric Exam Psychiatric exam: Normal Affect, Normal Mood Assessment and Plan - Assessment and Plan (Free Text) Assessment: 78 y/o diabetic female POD1 right foot 3rd digit amputation Plan: Pt seen and evaluated in ED with Dr. Bay present X-rays ordered of R foot reviewed- no distinct acute osseous erosive changes noted to right 3rd toe; await final read Wound culture prelim shows gram pos cocci, await final results RLE MRI taken today reveals cortical destruction and erosion at distal phalanx of 3rd digit, suggestive of acute osteomyelitis POD1 Right 3rd digit amputation- betadine, DSD applied to site ID on board Dr. Joiner - recommendations appreciated Will continue to follow patient while in house Patient pending discharge to [facility], preferably closer to home in [place]
[2018-12-16] MEDS: Vancomycin 1 gm/NS 200 ml 1 GM/200 ML BAG IVPB SCH (19:00)
[2018-12-17] MEDS: Piperacill/Tazo 3.375gm in Dex 3.375 GM/50 ML BAG IVPB SCH ×3 (06:06→21:33)
[2018-12-17] MEDS: Levothyroxine 50 MCG TAB PO SCH (06:07)
[2018-12-17] MEDS: (Novolin R) Insulin Human Regular 100 units/ml vial SC SCH ×4 (07:35→21:56)
--- NOTE | 2018-12-17 08:36 | CP.PCM.PN ---
Subjective - Date & Time of Evaluation Date of Evaluation: 12/17/18 Time of Evaluation: 08:36 - Subjective Subjective: Podiatry progress note for Dr. Fady Bay 78 y/o female patient seen at bedside POD2 right 3rd digit amputation with family at bedside. Patient states her pain is controlled and no acute overnight events. Patient denies fever, nausea, vomiting, chest pain or shortness of breath. Patient states she would like to be at a subacute facility close to home. Objective - Vital Signs/Intake and Output Vital Signs (last 24 hours): Temp Pulse Resp BP Pulse Ox 97.8 F 77 20 104/67 97 12/16/18 23:56 12/16/18 23:56 12/16/18 23:56 12/16/18 23:56 12/16/18 23:56 Intake and Output: 12/17/18 12/17/18 06:59 18:59 Intake Total 860 Balance 860 - Medications Medications: Current Medications Acetaminophen (Tylenol 325mg Tab) 650 mg PO Q6 PRN PRN Reason: Pain, Mild (1-3) Betamethasone/Clotrimazole (Lotrisone) 0 gm TOP BID [facility] Last Admin: 12/16/18 18:30 Dose: 1 applic Dextrose (Dextrose 50% Inj) 0 ml IV STAT PRN; Protocol PRN Reason: Hypoglycemia Protocol Dextrose (Glutose 15) 0 gm PO ONCE PRN; Protocol PRN Reason: Hypoglycemia Protocol Enalapril Maleate (Vasotec) 2.5 mg PO DAILY [facility] Last Admin: 12/16/18 10:01 Dose: 2.5 mg Fenofibrate (Tricor) 48 mg PO HS [facility] Last Admin: 12/16/18 22:01 Dose: 48 mg Gabapentin (Neurontin) 300 mg PO TID [facility] Last Admin: 12/16/18 17:45 Dose: 300 mg Glimepiride (Amaryl) 2 mg PO ACB [facility] Last Admin: 12/17/18 07:59 Dose: 2 mg Glucagon (Glucagen Diagnostic Kit) 0 mg IM STAT PRN; Protocol PRN Reason: Hypoglycemia Protocol Heparin Sodium (Porcine) (Heparin) 5,000 units SC Q12 [facility] Last Admin: 12/16/18 21:59 Dose: 5,000 units Piperacillin Sod/Tazobactam Sod (Zosyn 3.375 Gm Iv Premix) 3.375 gm in 50 mls @ 100 mls/hr IVPB Q8H [facility]; Protocol Last Admin: 12/17/18 06:06 Dose: 100 mls/hr Vancomycin/Sodium Chloride (Vancomycin 1 Gm/Ns 200 Ml) 1 gm in 200 mls @ 133 mls/hr IVPB Q24H [facility]; Protocol Stop: 12/18/18 19:01 Last Admin: 12/16/18 19:00 Dose: 133 mls/hr Lactated Ringer's (Lactated Ringer's) 1,000 mls @ 70 mls/hr IV .[id number] [facility] Last Admin: 12/16/18 19:25 Dose: 70 mls/hr Insulin Human Regular (Novolin R) 0 unit SC ACHS [facility]; Protocol Last Admin: 12/17/18 07:35 Dose: Not Given Levothyroxine Sodium (Synthroid) 50 mcg PO DAILY@0630 [facility] Last Admin: 12/17/18 06:07 Dose: 50 mcg Metformin HCl (Glucophage) 1,000 mg PO BIDCC [facility] Last Admin: 12/17/18 07:59 Dose: 1,000 mg Multivitamins/Minerals (Therapeutic-M Tab) 1 tab PO DAILY [facility] Last Admin: 12/16/18 10:02 Dose: 1 tab Oxycodone/Acetaminophen (Percocet 5/325 Mg Tab) 1 tab PO Q6H PRN PRN Reason: Pain, moderate (4-7) Stop: 12/18/18 14:34 Oxycodone/Acetaminophen (Percocet 5/325 Mg Tab) 2 tab PO Q6H PRN PRN Reason: Pain, severe (8-10) Stop: 12/18/18 14:34 Pioglitazone HCl (Actos) 15 mg PO DAILY [facility] Last Admin: 12/16/18 10:02 Dose: 15 mg Sitagliptin Phosphate (Januvia) 100 mg PO DAILY [facility] Last Admin: 12/16/18 10:03 Dose: Not Given Sodium Hypochlorite (Dakins Solution 0.5%) 0 ml TOP DAILY [facility] Last Admin: 12/16/18 10:03 Dose: Not Given - Labs Labs: 12/12/18 12:01 12/12/18 12:01 PT 11.5 SECONDS (9.7-12.2) 12/12/18 12:01 INR 1.1 12/12/18 12:01 APTT 30 SECONDS (21-34) 12/12/18 12:01 - Constitutional Appears: Well, Non-toxic, No Acute Distress - Head Exam Head Exam: ATRAUMATIC, NORMOCEPHALIC - Extremities Exam Additional comments: Lower extremity focused exam: Vasc: DP/PT pulses palpable 2/4 B/L. Temperature gradient warm to warm on right foot, warm to cool on LLE. CFT < 3 sec to all remaining digits Derm: amputation noted of the 3rd digit with sutures intact, no wound dehiscence, minimal maceration noted, no drainage, no malodor, callus noted to the tip of the left 3rd, no other open wounds or signs of infection Neuro: protective and gross sensation intact Ortho: mild tenderness at amputation site - Neurological Exam Neurological Exam: Alert, Awake, Oriented x3 - Psychiatric Exam Psychiatric exam: Normal Affect, Normal Mood Assessment and Plan - Assessment and Plan (Free Text) Assessment: 78 y/o diabetic female POD2 right foot 3rd digit amputation Plan: Pt seen and evaluated in ED with Dr. Bay present X-rays ordered of R foot reviewed- no distinct acute osseous erosive changes noted to right 3rd toe; await final read Wound culture prelim shows gram pos cocci, await final results RLE MRI taken today reveals cortical destruction and erosion at distal phalanx of 3rd digit, suggestive of acute osteomyelitis POD2 Right 3rd digit amputation- betadine, DSD applied to site ID on board Dr. Joiner - recommendations appreciated Will continue to follow patient while in house Patient pending discharge to [facility], preferably closer to home in [place]
[2018-12-17] MEDS: Multivitamin With Minerals Tab PO SCH (09:41)
[2018-12-17] MEDS: Dakin's Topical 0.5%-Full Strength (480 ml) TOP SCH (09:42)
[2018-12-17] MEDS: Clotrimazole/Betamethasone Cream(15 gm) TOP SCH ×2 (09:43→18:38)
[2018-12-17] MEDS: Lactated Ringer's 1,000 ML IV SCH ×2 (09:47→23:50)
--- NOTE | 2018-12-17 17:50 | CP.PCM.PN ---
Subjective - Date & Time of Evaluation Date of Evaluation: 12/17/18 Time of Evaluation: 11:00 - Subjective Subjective: CONDITION STABLE. S/P AMPUTATION. AFEBRILE. Objective - Vital Signs/Intake and Output Vital Signs (last 24 hours): Temp Pulse Resp BP Pulse Ox 97.9 F 93 H 20 113/59 L 95 12/17/18 16:00 12/17/18 16:00 12/17/18 16:00 12/17/18 16:00 12/17/18 16:00 Intake and Output: 12/17/18 12/17/18 06:59 18:59 Intake Total 860 1040 Balance 860 1040 - Medications Medications: Current Medications Acetaminophen (Tylenol 325mg Tab) 650 mg PO Q6 PRN PRN Reason: Pain, Mild (1-3) Betamethasone/Clotrimazole (Lotrisone) 0 gm TOP BID [facility] Last Admin: 12/17/18 09:43 Dose: 1 applic Dextrose (Dextrose 50% Inj) 0 ml IV STAT PRN; Protocol PRN Reason: Hypoglycemia Protocol Dextrose (Glutose 15) 0 gm PO ONCE PRN; Protocol PRN Reason: Hypoglycemia Protocol Enalapril Maleate (Vasotec) 2.5 mg PO DAILY [facility] Last Admin: 12/17/18 09:40 Dose: 2.5 mg Fenofibrate (Tricor) 48 mg PO HS [facility] Last Admin: 12/16/18 22:01 Dose: 48 mg Gabapentin (Neurontin) 300 mg PO TID [facility] Last Admin: 12/17/18 17:43 Dose: 300 mg Glimepiride (Amaryl) 2 mg PO ACB [facility] Last Admin: 12/17/18 07:59 Dose: 2 mg Glucagon (Glucagen Diagnostic Kit) 0 mg IM STAT PRN; Protocol PRN Reason: Hypoglycemia Protocol Heparin Sodium (Porcine) (Heparin) 5,000 units SC Q12 [facility] Last Admin: 12/17/18 09:41 Dose: 5,000 units Piperacillin Sod/Tazobactam Sod (Zosyn 3.375 Gm Iv Premix) 3.375 gm in 50 mls @ 100 mls/hr IVPB Q8H [facility]; Protocol Last Admin: 12/17/18 13:42 Dose: 100 mls/hr Vancomycin/Sodium Chloride (Vancomycin 1 Gm/Ns 200 Ml) 1 gm in 200 mls @ 133 mls/hr IVPB Q24H [facility]; Protocol Stop: 12/18/18 19:01 Last Admin: 12/16/18 19:00 Dose: 133 mls/hr Lactated Ringer's (Lactated Ringer's) 1,000 mls @ 70 mls/hr IV .[id number] [facility] Last Admin: 12/17/18 09:47 Dose: Not Given Insulin Human Regular (Novolin R) 0 unit SC ACHS [facility]; Protocol Last Admin: 12/17/18 17:45 Dose: Not Given Levothyroxine Sodium (Synthroid) 50 mcg PO DAILY@0630 [facility] Last Admin: 12/17/18 06:07 Dose: 50 mcg Metformin [facility] (Gluc[facility]) [facility] Last Admin: 12/17/18 16:45 Dose: 1,000 mg Multivitamins/Minerals (Therapeutic-M Tab) 1 tab PO DAILY [facility] Last Admin: 12/17/18 09:41 Dose: 1 tab Oxycodone/Acetaminophen (Percocet 5/325 Mg Tab) 1 tab PO Q6H PRN PRN Reason: Pain, moderate (4-7) Stop: 12/18/18 14:34 Oxycodone/Acetaminophen (Percocet 5/325 Mg Tab) 2 tab PO Q6H PRN PRN Reason: Pain, severe (8-10) Stop: 12/18/18 14:34 Pioglitazone HCl (Actos) 15 mg PO DAILY [facility] Last Admin: 12/17/18 09:40 Dose: 15 mg Sitagliptin Phosphate (Januvia) 100 mg PO DAILY [facility] Last Admin: 12/17/18 09:41 Dose: 100 mg Sodium Hypochlorite (Dakins Solution 0.5%) 0 ml TOP DAILY [facility] Last Admin: 12/17/18 09:42 Dose: 1 applic - Labs Labs: 12/12/18 12:01 12/12/18 12:01 PT 11.5 SECONDS (9.7-12.2) 12/12/18 12:01 INR 1.1 12/12/18 12:01 APTT 30 SECONDS (21-34) 12/12/18 12:01 - Constitutional Appears: No Acute Distress, Chronically Ill - Eye Exam Eye Exam: PERRL - ENT Exam ENT Exam: Normal Exam - Respiratory Exam Respiratory Exam: Clear to Ausculation Bilateral, NORMAL BREATHING PATTERN - Cardiovascular Exam Cardiovascular Exam: REGULAR RHYTHM, +S1, +S2 - GI/Abdominal Exam GI & Abdominal Exam: Soft, Normal Bowel Sounds - Extremities Exam Extremities Exam: Full ROM, Normal Capillary Refill, Normal Inspection. absent: Joint Swelling, Pedal Edema - Back Exam Back Exam: NORMAL INSPECTION - Neurological Exam Neurological Exam: Alert, Awake, CN II-XII Intact, Normal Gait, Oriented x3 - Psychiatric Exam Psychiatric exam: Normal Affect, Normal Mood Assessment and Plan - Assessment and Plan (Free Text) Assessment: SAME. Plan: CT IV ABTS.
[2018-12-17] MEDS: Vancomycin 1 gm/NS 200 ml 1 GM/200 ML BAG IVPB SCH (18:26)
[2018-12-18] MEDS: Levothyroxine 50 MCG TAB PO SCH (05:40)
[2018-12-18] MEDS: Piperacill/Tazo 3.375gm in Dex 3.375 GM/50 ML BAG IVPB SCH ×2 (05:42→14:24)
[2018-12-18] MEDS: (Novolin R) Insulin Human Regular 100 units/ml vial SC SCH ×4 (07:56→22:14)
[2018-12-18] MEDS: Multivitamin With Minerals Tab PO SCH (09:33)
[2018-12-18] MEDS: Dakin's Topical 0.5%-Full Strength (480 ml) TOP SCH (11:00)
[2018-12-18] MEDS: Clotrimazole/Betamethasone Cream(15 gm) TOP SCH ×2 (11:00→18:55)
--- NOTE | 2018-12-18 12:46 | CP.PCM.PN ---
Subjective - Date & Time of Evaluation Date of Evaluation: 12/18/18 Time of Evaluation: 12:44 - Subjective Subjective: pt improving. afebrile. vs wnl. s/p amputation rt middle toe. Objective - Vital Signs/Intake and Output Vital Signs (last 24 hours): Temp Pulse Resp BP Pulse Ox 97.5 F L 77 20 127/78 98 12/18/18 08:11 12/18/18 08:11 12/18/18 08:11 12/18/18 09:32 12/18/18 08:11 Intake and Output: 12/18/18 12/18/18 06:59 18:59 Intake Total 1615 Balance 1615 - Medications Medications: Current Medications Acetaminophen (Tylenol 325mg Tab) 650 mg PO Q6 PRN PRN Reason: Pain, Mild (1-3) Betamethasone/Clotrimazole (Lotrisone) 0 gm TOP BID [facility] Last Admin: 12/18/18 11:00 Dose: 1 applic Dextrose (Dextrose 50% Inj) 0 ml IV STAT PRN; Protocol PRN Reason: Hypoglycemia Protocol Dextrose (Glutose 15) 0 gm PO ONCE PRN; Protocol PRN Reason: Hypoglycemia Protocol Enalapril Maleate (Vasotec) 2.5 mg PO DAILY [facility] Last Admin: 12/18/18 09:32 Dose: 2.5 mg Fenofibrate (Tricor) 48 mg PO HS [facility] Last Admin: 12/17/18 21:33 Dose: 48 mg Gabapentin (Neurontin) 300 mg PO TID [facility] Last Admin: 12/18/18 09:45 Dose: 300 mg Glimepiride (Amaryl) 2 mg PO ACB [facility] Last Admin: 12/18/18 07:56 Dose: Not Given Glucagon (Glucagen Diagnostic Kit) 0 mg IM STAT PRN; Protocol PRN Reason: Hypoglycemia Protocol Heparin Sodium (Porcine) (Heparin) 5,000 units SC Q12 [facility] Last Admin: 12/18/18 09:31 Dose: 5,000 units Piperacillin Sod/Tazobactam Sod (Zosyn 3.375 Gm Iv Premix) 3.375 gm in 50 mls @ 100 mls/hr IVPB Q8H [facility]; Protocol Last Admin: 12/18/18 05:42 Dose: 100 mls/hr Vancomycin/Sodium Chloride (Vancomycin 1 Gm/Ns 200 Ml) 1 gm in 200 mls @ 133 mls/hr IVPB Q24H [facility]; Protocol Stop: 12/18/18 19:01 Last Admin: 12/17/18 18:26 Dose: 133 mls/hr Lactated Ringer's (Lactated Ringer's) 1,000 mls @ 70 mls/hr IV .[id number] [facility] Last Admin: 12/17/18 23:50 Dose: Not Given Insulin Human Regular (Novolin R) 0 unit SC ACHS [facility]; Protocol Last Admin: 12/18/18 12:10 Dose: 2 units Levothyroxine Sodium (Synthroid) 50 mcg PO DAILY@0630 [facility] Last Admin: 12/18/18 05:40 Dose: 50 mcg Metformin HCl (Glucophage) 1,000 mg PO BIDCC [facility] Last Admin: 12/18/18 08:00 Dose: Not Given Multivitamins/Minerals (Therapeutic-M Tab) 1 tab PO DAILY [facility] Last Admin: 12/18/18 09:33 Dose: 1 tab Oxycodone/Acetaminophen (Percocet 5/325 Mg Tab) 1 tab PO Q6H PRN PRN Reason: Pain, moderate (4-7) Stop: 12/18/18 14:34 Oxycodone/Acetaminophen (Percocet 5/325 Mg Tab) 2 tab PO Q6H PRN PRN Reason: Pain, severe (8-10) Stop: 12/18/18 14:34 Pioglitazone HCl (Actos) 15 mg PO DAILY [facility] Last Admin: 12/18/18 09:45 Dose: Not Given Sitagliptin Phosphate (Januvia) 100 mg PO DAILY [facility] Last Admin: 12/18/18 09:46 Dose: Not Given Sodium Hypochlorite (Dakins Solution 0.5%) 0 ml TOP DAILY [facility] Last Admin: 12/18/18 11:00 Dose: 1 applic - Labs Labs: 12/12/18 12:01 12/12/18 12:01 PT 11.5 SECONDS (9.7-12.2) 12/12/18 12:01 INR 1.1 12/12/18 12:01 APTT 30 SECONDS (21-34) 12/12/18 12:01 - Constitutional Appears: No Acute Distress, Chronically Ill - Eye Exam Eye Exam: PERRL - ENT Exam ENT Exam: Normal Exam - Respiratory Exam Respiratory Exam: Clear to Ausculation Bilateral, NORMAL BREATHING PATTERN - Cardiovascular Exam Cardiovascular Exam: REGULAR RHYTHM, +S1, +S2 - GI/Abdominal Exam GI & Abdominal Exam: Soft, Normal Bowel Sounds - Extremities Exam Extremities Exam: Full ROM, Normal Capillary Refill, Normal Inspection. absent: Joint Swelling, Pedal Edema - Neurological Exam Neurological Exam: Alert, Awake, CN II-XII Intact, Normal Gait, Oriented x3 Assessment and Plan - Assessment and Plan (Free Text) Assessment: same. Plan: discussed with dr. stevenson and dr. alford. ok for rehab. needs iv antiobiotics.
[2018-12-18] MEDS: Lactated Ringer's 1,000 ML IV SCH (13:37)
--- NOTE | 2018-12-18 19:02 | CP.PCM.PN ---
Subjective - Date & Time of Evaluation Date of Evaluation: 12/18/18 Time of Evaluation: 18:57 - Subjective Subjective: Podiatry progress note for Dr. Bay 78F seen and evaluated at bedside 4 days s/p right third digit amputation. Patient is AAO x 3 and NAD, resting comfortably in bed. Denies any acute overnight events or new pedal complaints at this time. Denies any recent N/V/F/C/CP/SOB/D Objective - Vital Signs/Intake and Output Vital Signs (last 24 hours): Temp Pulse Resp BP Pulse Ox 98.4 F 89 20 131/75 97 12/18/18 16:00 12/18/18 16:00 12/18/18 16:00 12/18/18 16:00 12/18/18 16:00 Intake and Output: 12/18/18 12/18/18 06:59 18:59 Intake Total 1615 910 Balance 1615 910 - Medications Medications: Current Medications Acetaminophen (Tylenol 325mg Tab) 650 mg PO Q6 PRN PRN Reason: Pain, Mild (1-3) Betamethasone/Clotrimazole (Lotrisone) 0 gm TOP BID [facility] Last Admin: 12/18/18 11:00 Dose: 1 applic Dextrose (Dextrose 50% Inj) 0 ml IV STAT PRN; Protocol PRN Reason: Hypoglycemia Protocol Dextrose (Glutose 15) 0 gm PO ONCE PRN; Protocol PRN Reason: Hypoglycemia Protocol Enalapril Maleate (Vasotec) 2.5 mg PO DAILY [facility] Last Admin: 12/18/18 09:32 Dose: 2.5 mg Fenofibrate (Tricor) 48 mg PO HS [facility] Last Admin: 12/17/18 21:33 Dose: 48 mg Gabapentin (Neurontin) 300 mg PO TID [facility] Last Admin: 12/18/18 17:29 Dose: 300 mg Glimepiride (Amaryl) 2 mg PO ACB [facility] Last Admin: 12/18/18 07:56 Dose: Not Given Glucagon (Glucagen Diagnostic Kit) 0 mg IM STAT PRN; Protocol PRN Reason: Hypoglycemia Protocol Heparin Sodium (Porcine) (Heparin) 5,000 units SC Q12 [facility] Last Admin: 12/18/18 09:31 Dose: 5,000 units Vancomycin/Sodium Chloride (Vancomycin 1 Gm/Ns 200 Ml) 1 gm in 200 mls @ 133 mls/hr IVPB Q24H [facility]; Protocol Stop: 12/18/18 19:01 Last Admin: 12/17/18 18:26 Dose: 133 mls/hr Insulin Human Regular (Novolin R) 0 unit SC ACHS [facility]; Protocol Last Admin: 12/18/18 17:10 Dose: 2 units Levothyroxine Sodium (Synthroid) 50 mcg PO DAILY@0630 [facility] Last Admin: 12/18/18 05:40 Dose: 50 mcg Metformin HCl (Glucophage) 1,000 mg PO BIDCC [facility] Last Admin: 12/18/18 17:30 Dose: 1,000 mg Multivitamins/Minerals (Therapeutic-M Tab) 1 tab PO DAILY [facility] Last Admin: 12/18/18 09:33 Dose: 1 tab Pioglitazone HCl (Actos) 15 mg PO DAILY [facility] Last Admin: 12/18/18 09:45 Dose: Not Given Sitagliptin Phosphate (Januvia) 100 mg PO DAILY [facility] Last Admin: 12/18/18 09:46 Dose: Not Given Sodium Hypochlorite (Dakins Solution 0.5%) 0 ml TOP DAILY [facility] Last Admin: 12/18/18 11:00 Dose: 1 applic - Labs Labs: 12/12/18 12:01 12/12/18 12:01 PT 11.5 SECONDS (9.7-12.2) 12/12/18 12:01 INR 1.1 12/12/18 12:01 APTT 30 SECONDS (21-34) 12/12/18 12:01 - Constitutional Appears: Well, Non-toxic, No Acute Distress - Extremities Exam Additional comments: RLE focused exam: Vasc: DP/PT pulses palpable 2/4 B/L. Skin temperature warm to warm from proximal to distal WNL, CFT < 3 sec to all remaining digits, minimal edema appropriate for postoperative status seen at amputation site Derm: amputation noted of the 3rd digit with sutures intact, no wound dehisc ence, minimal maceration noted, no drainage, no malodor, no other clinical signs of infection appreciated. Otherwise, no open lesions, wounds, maceration, xerosis, abnormal pigmentation or abnormal growths noted Neuro: Epicritic and protective sensation grossly intact Ortho: Amputation noted to right third digit with minimal pain on palpation of amputation site. No other gross deformities noted - Neurological Exam Neurological Exam: Alert, Awake, Oriented x3 - Psychiatric Exam Psychiatric exam: Normal Affect, Normal Mood Assessment and Plan - Assessment and Plan (Free Text) Assessment: 78F seen and evaluated at bedside 4 days s/p right third digit amputation Plan: Patient seen and evaluated Plan discussed with Dr. Bay Continue IV abx per ID Continue pain management per medicine Wound dressed with betadine, DSD No plan for further surgical intervention at this time Patient clear for DC to [facility] from podiatric standpoint Podiatry will continue to follow while patient in house
[2018-12-18] MEDS: Vancomycin 1 gm/NS 200 ml 1 GM/200 ML BAG IVPB SCH (19:44)
[2018-12-19] MEDS: Levothyroxine 50 MCG TAB PO SCH (06:22)
[2018-12-19] MEDS: (Novolin R) Insulin Human Regular 100 units/ml vial SC SCH ×2 (08:02→12:04)
[2018-12-19 08:38] LABS: BLOOD UREA NITROGEN 7 mg/dL (7-17); CALCIUM 8.7 mg/dl (8.6-10.4); GFR NON-AFRICAN AMERICAN > 60
[2018-12-19 09:07] VITALS: O2SAT 99
[2018-12-19] MEDS: Multivitamin With Minerals Tab PO SCH (10:09)
[2018-12-19] MEDS: Dakin's Topical 0.5%-Full Strength (480 ml) TOP SCH (10:14)
[2018-12-19] MEDS: Clotrimazole/Betamethasone Cream(15 gm) TOP SCH (10:17)
--- NOTE | 2018-12-19 10:51 | CP.PCM.PN ---
Subjective - Date & Time of Evaluation Date of Evaluation: 12/19/18 Time of Evaluation: 06:00 - Subjective Subjective: 78F seen and evaluated at bedside 4 days s/p right third digit amputation. Patient is AAO x 3 and NAD, resting comfortably in bed. Denies any acute overnight events or new pedal complaints at this time. to cont iv rx for 5 days more orders renewd Objective - Vital Signs/Intake and Output Vital Signs (last 24 hours): Temp Pulse Resp BP Pulse Ox 97.6 F 98 H 20 129/75 99 12/19/18 09:06 12/19/18 09:06 12/19/18 09:06 12/19/18 10:10 12/19/18 09:06 Intake and Output: 12/19/18 12/19/18 06:59 18:59 Intake Total 1150 Balance 1150 - Medications Medications: Current Medications Acetaminophen (Tylenol 325mg Tab) 650 mg PO Q6 PRN PRN Reason: Pain, Mild (1-3) Betamethasone/Clotrimazole (Lotrisone) 0 gm TOP BID [facility] Last Admin: 12/19/18 10:17 Dose: 1 applic Dextrose (Dextrose 50% Inj) 0 ml IV STAT PRN; Protocol PRN Reason: Hypoglycemia Protocol Dextrose (Glutose 15) 0 gm PO ONCE PRN; Protocol PRN Reason: Hypoglycemia Protocol Enalapril Maleate (Vasotec) 2.5 mg PO DAILY [facility] Last Admin: 12/19/18 10:10 Dose: 2.5 mg Fenofibrate (Tricor) 48 mg PO HS [facility] Last Admin: 12/18/18 22:16 Dose: 48 mg Gabapentin (Neurontin) 300 mg PO TID [facility] Last Admin: 12/19/18 10:09 Dose: 300 mg Glimepiride (Amaryl) 2 mg PO ACB [facility] Last Admin: 12/19/18 08:30 Dose: 2 mg Glucagon (Glucagen Diagnostic Kit) 0 mg IM STAT PRN; Protocol PRN Reason: Hypoglycemia Protocol Heparin Sodium (Porcine) (Heparin) 5,000 units SC Q12 [facility] Last Admin: 12/19/18 10:15 Dose: 5,000 units Vancomycin HCl 1 gm/ Sodium (Chloride) 250 mls @ 166.7 mls/hr IVPB Q24H [facility]; Protocol Piperacillin Sod/Tazobactam (Sod 3.375 gm/ Sodium Chloride) 100 mls @ 200 mls/hr IVPB Q8H [facility]; Protocol Insulin Human Regular (Novolin R) 0 unit SC ACHS [facility]; Protocol Last Admin: 12/19/18 08:02 Dose: Not Given Levothyroxine Sodium (Synthroid) 50 mcg PO DAILY@0630 [facility] Last Admin: 12/19/18 06:22 Dose: 50 mcg Metformin HCl (Glucophage) 1,000 mg PO BIDCC [facility] Last Admin: 12/19/18 08:30 Dose: 1,000 mg Multivitamins/Minerals (Therapeutic-M Tab) 1 tab PO DAILY [facility] Last Admin: 12/19/18 10:09 Dose: 1 tab Pioglitazone HCl (Actos) 15 mg PO DAILY [facility] Last Admin: 12/19/18 10:10 Dose: 15 mg Sitagliptin Phosphate (Januvia) 100 mg PO DAILY [facility] Last Admin: 12/19/18 10:09 Dose: 100 mg Sodium Hypochlorite (Dakins Solution 0.5%) 0 ml TOP DAILY [facility] Last Admin: 12/19/18 10:14 Dose: 1 applic - Labs Labs: 12/12/18 12:01 12/19/18 08:13 PT 11.5 SECONDS (9.7-12.2) 12/12/18 12:01 INR 1.1 12/12/18 12:01 APTT 30 SECONDS (21-34) 12/12/18 12:01 Assessment and Plan (1) Cellulitis Status: Acute (2) Non-STEMI (non-ST elevated myocardial infarction) Status: Acute
[2018-12-19 11:39] LABS: BASO % 0.5 % (0.0-2.0); EOS # 0.2 K/uL (0.0-0.7); EOS % 2.1 % (0.0-4.0); HEMOGLOBIN 8.9 g/dL (11.0-16.0); LYMPH # 2.4 K/uL (1.0-4.3); LYMPH % 26.8 % (20.0-40.0); MEAN CELL VOLUME 81.5 fL (81.0-99.0); MEAN CORPUSCULAR HEMOGLOBIN 25.7 pg (27.0-31.0); MEAN CORPUSCULAR HGB CONC 31.5 g/dL (33.0-37.0); MEAN PLATELET VOLUME 8.4 fL (7.2-11.7); MONO # 0.5 K/uL (0.0-0.8); MONO % 5.3 % (0.0-10.0); NEUT % 65.3 % (50.0-75.0); RBC 3.46 Mil/uL (3.80-5.20); RED CELL DISTRIBUTION WIDTH 16.1 % (11.5-14.5); WHITE BLOOD COUNT 9.1 K/uL (4.8-10.8)
[2018-12-19] MEDS ORDERED: Piperacillin/Tazobact 3.375 GM in Sodium Chloride 100 ML IVPB SCH (12:00)
--- NOTE | 2018-12-19 12:28 | CP.PCM.PN ---
Subjective - Date & Time of Evaluation Date of Evaluation: 12/19/18 Time of Evaluation: 12:26 - Subjective Subjective: condition stable. afebrile. s/p om rt third toe. Objective - Vital Signs/Intake and Output Vital Signs (last 24 hours): Temp Pulse Resp BP Pulse Ox 97.6 F 98 H 20 129/75 99 12/19/18 09:06 12/19/18 09:06 12/19/18 09:06 12/19/18 10:10 12/19/18 09:06 Intake and Output: 12/19/18 12/19/18 06:59 18:59 Intake Total 1150 Balance 1150 - Medications Medications: Current Medications Acetaminophen (Tylenol 325mg Tab) 650 mg PO Q6 PRN PRN Reason: Pain, Mild (1-3) Betamethasone/Clotrimazole (Lotrisone) 0 gm TOP BID [facility] Last Admin: 12/19/18 10:17 Dose: 1 applic Dextrose (Dextrose 50% Inj) 0 ml IV STAT PRN; Protocol PRN Reason: Hypoglycemia Protocol Dextrose (Glutose 15) 0 gm PO ONCE PRN; Protocol PRN Reason: Hypoglycemia Protocol Enalapril Maleate (Vasotec) 2.5 mg PO DAILY [facility] Last Admin: 12/19/18 10:10 Dose: 2.5 mg Fenofibrate (Tricor) 48 mg PO HS [facility] Last Admin: 12/18/18 22:16 Dose: 48 mg Gabapentin (Neurontin) 300 mg PO TID [facility] Last Admin: 12/19/18 10:09 Dose: 300 mg Glimepiride (Amaryl) 2 mg PO ACB [facility] Last Admin: 12/19/18 08:30 Dose: 2 mg Glucagon (Glucagen Diagnostic Kit) 0 mg IM STAT PRN; Protocol PRN Reason: Hypoglycemia Protocol Heparin Sodium (Porcine) (Heparin) 5,000 units SC Q12 [facility] Last Admin: 12/19/18 10:15 Dose: 5,000 units Vancomycin HCl 1 gm/ Sodium (Chloride) 250 mls @ 166.7 mls/hr IVPB Q24H [facility]; Protocol Piperacillin Sod/Tazobactam (Sod 3.375 gm/ Sodium Chloride) 100 mls @ 200 mls/hr IVPB Q8H [facility]; Protocol Insulin Human Regular (Novolin R) 0 unit SC ACHS [facility]; Protocol Last Admin: 12/19/18 12:04 Dose: Not Given Levothyroxine Sodium (Synthroid) 50 mcg PO DAILY@0630 [facility] Last Admin: 12/19/18 06:22 Dose: 50 mcg Metformin HCl (Glucophage) 1,000 mg PO BIDCC [facility] Last Admin: 12/19/18 08:30 Dose: 1,000 mg Multivitamins/Minerals (Therapeutic-M Tab) 1 tab PO DAILY [facility] Last Admin: 12/19/18 10:09 Dose: 1 tab Pioglitazone HCl (Actos) 15 mg PO DAILY [facility] Last Admin: 12/19/18 10:10 Dose: 15 mg Sitagliptin Phosphate (Januvia) 100 mg PO DAILY [facility] Last Admin: 12/19/18 10:09 Dose: 100 mg Sodium Hypochlorite (Dakins Solution 0.5%) 0 ml TOP DAILY [facility] Last Admin: 12/19/18 10:14 Dose: 1 applic - Labs Labs: 12/19/18 11:25 12/19/18 08:13 PT 11.5 SECONDS (9.7-12.2) 12/12/18 12:01 INR 1.1 12/12/18 12:01 APTT 30 SECONDS (21-34) 12/12/18 12:01 - Constitutional Appears: No Acute Distress, Chronically Ill - Eye Exam Eye Exam: Normal appearance, PERRL - ENT Exam ENT Exam: Mucous Membranes Moist - Respiratory Exam Respiratory Exam: Clear to Ausculation Bilateral, NORMAL BREATHING PATTERN - Cardiovascular Exam Cardiovascular Exam: REGULAR RHYTHM, +S1, +S2 - GI/Abdominal Exam GI & Abdominal Exam: Soft, Normal Bowel Sounds - Extremities Exam Extremities Exam: Full ROM, Normal Capillary Refill, Normal Inspection. absent: Joint Swelling, Pedal Edema - Back Exam Back Exam: NORMAL INSPECTION Assessment and Plan - Assessment and Plan (Free Text) Assessment: same Plan: for nan. iv abts.
[2018-12-19 15:58] VITALS: BP 127/75; PULSE 90; RESP 18; TEMP 97.7
--- NOTE | 2018-12-19 18:37 | CP.PCM.PN ---
Subjective - Date & Time of Evaluation Date of Evaluation: 12/19/18 Time of Evaluation: 18:34 - Subjective Subjective: Podiatry progress note for Dr. Bay 78F seen and evaluated at bedside with Dr. Bay 5 days s/p right third digit amputation. Patient is AAO x 3 and NAD, resting comfortably in bed. Denies any acute overnight events or new pedal complaints at this time. Per physical therapy, patient is not complying with her weight bearing status and has been walking on her foot. Denies any recent N/V/F/C/CP/SOB/D Objective - Vital Signs/Intake and Output Vital Signs (last 24 hours): Temp Pulse Resp BP Pulse Ox 97.7 F 90 18 127/75 99 12/19/18 15:00 12/19/18 15:00 12/19/18 15:00 12/19/18 15:00 12/19/18 15:00 Intake and Output: 12/19/18 12/19/18 06:59 18:59 Intake Total 1150 800 Balance 1150 800 - Labs Labs: 12/19/18 11:25 12/19/18 08:13 PT 11.5 SECONDS (9.7-12.2) 12/12/18 12:01 INR 1.1 12/12/18 12:01 APTT 30 SECONDS (21-34) 12/12/18 12:01 - Constitutional Appears: Well, Non-toxic, No Acute Distress - Extremities Exam Additional comments: RLE focused exam: Vasc: DP/PT pulses palpable 2/4 B/L. Skin temperature warm to warm from proximal to distal WNL, CFT < 3 sec to all remaining digits, minimal edema appropriate for postoperative status seen at amputation site Derm: amputation noted of the 3rd digit with sutures intact, no wound dehiscence, no maceration noted, no drainage, no malodor, no other clinical signs of infection appreciated. Otherwise, no open lesions, wounds, maceration, xerosis, abnormal pigmentation or abnormal growths noted Neuro: Epicritic and protective sensation grossly intact Ortho: Amputation noted to right third digit with minimal pain on palpation of amputation site. No other gross deformities noted - Neurological Exam Neurological Exam: Alert, Awake, Oriented x3 - Psychiatric Exam Psychiatric exam: Normal Affect, Normal Mood Assessment and Plan - Assessment and Plan (Free Text) Assessment: 78F seen and evaluated at bedside with Dr. Bay 5 days s/p right third digit amputation Plan: Patient seen and evaluated with Dr. Bay Continue IV abx per ID Continue pain management per medicine Wound dressed with betadine, DSD No plan for further surgical intervention at this time Patient clear for DC to [facility] from podiatric standpoint Podiatry will continue to follow while patient in house
--- NOTE | 2018-12-20 05:16 | DS ---
HISTORY OF PRESENT ILLNESS: This is a 78-year-old female who came to the emergency room with a history of right foot infection, cellulitis and fever. The patient has swelling of right leg with infection in the right third toe. History of coronary artery disease, diabetes, hypertension. PHYSICAL EXAMINATION: GENERAL: During the hospital course, the patient was awake, alert and comfortable. VITAL SIGNS: Within normal limits. LUNGS: Normal. HEART: Normal. EXTREMITIES: Right foot infection, cellulitis present. LABORATORY DATA: Lab work noted. Dr. Fady Bay was consulted for foot problems. The patient also has MRI done, which shows osteomyelitis. The patient has amputation of the right third toe done. The patient was stabilized. FINAL DIAGNOSES: Right third toe gangrene and osteomyelitis. Cellulitis, right foot. Coronary artery disease. PLAN: The patient will be transferred to the [facility] for rehabilitation. Continue all the medications. Felicia Marvin MD
== END 2018-12-19 16:07 | DRG 617 ==
LOC: C.ER 11:19 → C.3T 12:33 → C.9E 13:16 → C.3T 13:17
PROVIDERS: ADMIT Internal Medicine; ATTEND Internal Medicine
PROC: 0Y6T0Z0 Detachment at Right 3rd Toe, Complete, Open Approach (ICD-10-PCS; principal; 2018-12-15 12:30)
DX: E11.69 Type 2 diabetes mellitus with other specified complication (principal); E11.52 Type 2 diabetes mellitus with diabetic peripheral angiopathy with gangrene; M86.171 Other acute osteomyelitis, right ankle and foot; L03.031 Cellulitis of right toe; L03.115 Cellulitis of right lower limb; B95.7 Other staphylococcus as the cause of diseases classified elsewhere; B95.2 Enterococcus as the cause of diseases classified elsewhere; I25.10 Atherosclerotic heart disease of native coronary artery without angina pectoris; I10 Essential (primary) hypertension; E03.9 Hypothyroidism, unspecified; Z95.1 Presence of aortocoronary bypass graft; Z95.5 Presence of coronary angioplasty implant and graft; Z79.4 Long term (current) use of insulin